=== PATIENT | male | born 1965 ===

== ENCOUNTER 2017-10-10 11:22 | Emergency (ER) | payer MEDICARE, OTHER ==
[~2017-10-10] VITALS: Ht 180.3 cm; Wt 90.7 kg
[~2017-10-10 11:22] MED LIST: ASP81TEC PO; GLIP10TA13; HUM100VI15 SQ; METF1000; OLME1TAB25; PIOG30TA25; [UNRECOGNIZED DRUG - REMARK]; [UNRECOGNIZED DRUG - REMARK]
[2017-10-10] MEDS ORDERED: DEXTROSE 50% 50 ML (IMS) SYR ONE (11:48)
--- OUTSIDE RECORDS SUMMARY | 2017-10-10 11:54 | XMS REPORT ---
Author Author KULDIP TRUJILLO Organization [facility] Address [address] [place] [address] Care Team Providers Care Program Manager Slp Name Role Phone RONNIEANNIKULDIP Unavailable PROBLEMS Type Condition ICD9-CM Code TZD65-AY Code Onset Dates Condition Status SNOMED Code Problem Hypertension I10 Active 27377821 Problem Type 2 diabetes mellitus with hyperglycemia E11.65 Active 350843853 Problem Hyperlipidemia E78.5 Active 50941531 Problem Type 2 diabetes mellitus with other specified complication E11.69 Active 804142417989 Problem Type 2 diabetes mellitus 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 Active 152993325 Problem Other elevated white blood cell (WBC) count D72.828 Active 016570748 Problem History of CVA with residual deficit I69.30 Active 861619632 Problem Ischemic cardiomyopathy I25.5 Active 859182886 Problem Chronic systolic heart failure I50.22 Active 745735577 Problem Type 2 diabetes 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, 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 Active 10821010 Problem Type 2 diabetes mellitus with diabetic polyneuropathy E11.42 Active 960483066 Problem Cerebral atherosclerosis I67.2 Active 37383522 Problem 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 Active 375373449 Problem 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.4 Active 682928623 ALLERGIES No Known Allergies ENCOUNTERS Encounter Location Date Diagnosis [facility] [address] [facility] [id number] [address] Oct, [facility] [address] [facility] [id number], [place] [address] Oct, [facility] [address] [id number] [address] Jul, Type 2 diabetes mellitus with hyperglycemia E11.65 ; Ischemic cardiomyopathy I25.5 ; Hypertension I10 ; Chronic systolic heart failure I50.22 ; Other elevated white blood cell (WBC) count D72.828 ; Hyperlipidemia E78.5 ; 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.4 ; Type 2 diabetes 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, 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 ; Thickened nail L60.2 and Screening for colon cancer Z12.11 [facility] [address] [place] [address]205- 89[address] June, Type 2 diabetes mellitus with hyperglycemia E11.65 ; Other elevated white blood cell (WBC) count D72.828 ; Hypertension I10 and Hyperlipidemia E78.5 [facility] [id number] [place] [address] 11644- 3960 Mar, Type 2 diabetes mellitus with hyperglycemia E11.65 ; Hypertension I10 ; Other elevated white blood cell (WBC) count D72.828 ; Hyperlipidemia E78.5 and Colon cancer screening Z12.11 [facility] [id number] [place] [address] 91059- 4074 Feb, [facility] [id number] [place] [address] 82394- 6575 Jan, Hypertension I10 [facility] [id number] [place] [address] 77438- 8427 Jan, Hypertension I10 [facility] [id number] [place] [address] 58036- 0127 Nov, Type 2 diabetes mellitus with hyperglycemia E11.65 and Encounter for immunization Z23 [facility] [id number] [place] [id number] Sep, Dental examination Z01.20 [facility] [id number] [place] [address] 06866- 0508 Aug, [place] [address] [address] Jul, Dental examination Z01.20 [facility] [id number] [place] [address] 36152- 2489 Jul, [facility] [address], [place] [address] Jul, Type 2 diabetes mellitus with hyperglycemia E11.65 [place] [id number] [place] [address] 15144- 6380 June, [place] [address] [place] [address] 63828- 7849 June, Dental examination Z01.20 [place] [id number] [place] [address] 89373- 1268 June, Type 2 diabetes mellitus with hyperglycemia E11.65 [place] [id number] [place] [address] 63158- 8509 June, Hypertension I10 [place] [id number] [place] [address] 01213- 1198 June, Dental examination Z01.20 [place] [id number] [place] [address] 67214- 3768 June, Type 2 diabetes mellitus with hyperglycemia E11.65 ; Colon cancer screening Z12.11 ; Need for Streptococcus pneumoniae vaccination Z23 ; Hypertension I10 ; Encounter for immunization Z23 and Hyperlipidemia E78.5 [place] [address] [place] [address] 80279- 5811 May, Type 2 diabetes mellitus with hyperglycemia E11.65 [place] [address] [place] [address] 78210- 2945 Apr, Type 2 diabetes mellitus 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 ; Type 2 diabetes mellitus with hyperglycemia E11.65 and Hypertension I10 [place] [address], [place] [address] Feb, Type 2 diabetes mellitus with hyperglycemia E11.65 [place] [address] [place] [address] 44660- 7382 Jan, [place] [address] [place] [address] 56762- 2974 Jan, [place] [address] [address] Dec, Hypertension I10 ; Type 2 diabetes mellitus with hyperglycemia E11.65 ; Hyperlipemia E78.5 and Other elevated white blood cell ( WBC) count D72.828 [place] [id number] [place] [address] 09872- 5845 Dec, Hypertension I10 ; Hyperlipemia E78.5 ; Type 2 diabetes mellitus with hyperglycemia E11.65 ; Type 2 diabetes mellitus 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 ; Other elevated white blood cell (WBC) count D72.828 and History of CVA with residual deficit I69.30 [place] [id number] [place] [address] 23967- 0948 Dec, Cardiomyopathy I42.9 ; Hyperlipidemia E78.5 ; Type 2 diabetes mellitus with other specified complication E11.69 and Hypertension I10 [place] [id number] [place] [address] 07834- 9936 Nov, [place] [id number] [place] [address] 29754- 6521 Nov, Cardiomyopathy I42.9 ; Hyperlipidemia E78.5 ; Type 2 diabetes mellitus with other specified complication E11.69 and Hypertension I10 [place] [address] [place] [address] 23914- 2864 Oct, Hyperlipemia E78.5 [place] [id number] [place] [address] 38434- 9474 Sep, Type 2 diabetes mellitus with hyperglycemia E11.65 [place] [address] [place] [address] 53442- 3095 June, Type 2 diabetes mellitus with hyperglycemia E11.65 [place] [address] [place] [address] 12122- 5693 June, Hypertension I10 and Type 2 diabetes mellitus with hyperglycemia E11.65 [place] [id number] [place] [address] 65231- 3641 June, [facility] [address], [place] [address] May, [facility] [id number] [place] [address] 72945- 9999 May, Hypertension I10 and Type 2 diabetes mellitus with hyperglycemia E11.65 [facility] [id number] [place] [address] 895674- 6035 May, Hypertension I10 ; Type 2 diabetes mellitus with hyperglycemia E11.65 ; Hyperlipidemia E78.5 and Cardiomyopathy I42.9 [place] [id number] [place] [address] 82876- 1244 Mar, [place] [id number] [place] [address] 99470- 8238 Feb, Type 2 diabetes mellitus with hyperglycemia E11.65 [place] [id number] [place] [address] 68325- 5356 Jan, [facility] [address] [place] [address] 01131- 9227 Nov, [facility] [id number] [place] [address] 41484- 8724 Nov, Diabetes mellitus without mention of complication, type II or unspecified type, uncontrolled 250.02 and Hyperlipidemia associated with type 2 diabetes mellitus 250.80 [place] [id number] [place] [address] 65556- 4750 Nov, Hypertension I10 ; Type 2 diabetes mellitus with other specified complication E11.69 and Hyperlipemia E78.5 [facility] [address], [place] [address] 0346 Nov, [place] [id number] [place] [address] 47062- 8273 Nov, [facility] [address], [place] [address] Oct, Diabetes mellitus without mention of complication, type II or unspecified type, uncontrolled 250.02 and Hyperlipidemia associated with type 2 diabetes mellitus 250.80 [facility] [address], [place] [address] Oct, [facility] [address], [place] [address] Aug, Diabetes mellitus without mention of complication, type II or unspecified type, uncontrolled 250.02 ; Other and unspecified hyperlipidemia 272.4 and Hypertension 401.9 [facility] [address], [place] [address]- 7968 Aug, [facility] [address], [place] [address]- 1561 Jul, [facility] [address], [place] [address]- 6791 May, [facility] [address], [place] [address]- 9728 May, [facility] [address], [place] [address]- 1121 Apr, [facility] [address] [address] Apr, [facility] [address], [place] [address]- 4850 Apr, [facility] [id number], [place] [address]- 7314 Apr, [facility] [id number] [address]- 6795 Apr, [facility] [address], [place] [address]- 6461 Apr, [facility] [address], [place] [address]- 2840 Mar, [facility] [id number], [place] [address]- 3046 Mar, [facility] [place] [facility] [address] [id number] [place] [address]- [address] 07 Mar, 2014 [facility] [place] [facility] [address] [id number] [place] [address]- 4178 Mar, [facility] [place] [facility] [address] [id number] [place] [address]- 0748 Mar, [facility] [place] [facility] [address] [id number] [place] [address]- 3550 Feb, [facility] [place] [facility] [address] [id number] [place] [address]- 8482 Feb, [facility] [place] [facility] [address] [id number] [place] [address]- 3715 Feb, [facility] [place] [facility] [address] [id number] [place] [address]- 0860 Feb, [facility] [place] [facility] [address] [id number] [place] [address]- 7424 Feb, [facility] [place] [facility] [address] [id number] [place] [address]- 6799 Feb, [facility] [place] [facility] [address] [id number] [place] [address]- 3512 Feb, [facility] [place] [facility] [address] [id number] [place] [address]- 7611 Feb, [facility] [place] [facility] [address] [id number], [place] [address]- 2823 Jan, [facility] [place] [facility] [address] [id number] [place] [address]- 2588 Jan, [facility] [place] [facility] [address] [id number] [place] [address]- 1366 Jan, [facility] [place] [facility] [address] [id number], [place] [address]- 3171 Jan, [facility] [place] [facility] [address] [id number], [place] [address]- 2546 Jan, [facility] [address] [facility] [id number] [place] [address]- 2546 Jan, [facility] [address] [facility] [id number], [place] [address]- 2546 Jan, [facility] [address] [facility] [id number], [place] [address]- 2546 Jan, [facility] [address] [facility] [id number], [place] [address] 2546 Nov, [facility] [address] [facility] [id number], [place] [address] 2546 Nov, IMMUNIZATIONS No Known Immunizations SOCIAL HISTORY Never Assessed REASON FOR VISIT Diabetes fu --devang denson PLAN OF CARE Activity Details Follow Up 3 Months Reason:DMII VITAL SIGNS Height 68 in 2017-07-18 Weight 199.0 lbs 2017-07-18 Temperature 98.1 degrees Fahrenheit 2017-07-18 Heart Rate 70 bpm 2017-07-18 Respiratory Rate 20 2017-07-18 BMI 30.25 kg/m2 2017-07-18 Blood pressure systolic 128 mmHg 2017-07-18 Blood pressure diastolic 78 mmHg 2017-07-18 MEDICATIONS Medication Instructions Dosage Frequency Start Date End Date Duration Status Metformin HCl 1000 MG Orally 2 times a day 1 tablet with a meal 12h 90 days Active Levemir FlexTouch 100 UNIT/ML Subcutaneous 2 times a day 50 units 12h Active Lisinopril 20 mg Orally Once a day 1 tablet 24h 90 days Active Toprol XL 25 MG Orally Once a day 1 tablet 24h 90 days Active Magnesium Oxide 250 MG Orally Once a day 1 tablet 24h Not-Taking Atorvastatin Calcium 80 MG Orally Once a day 1 tablet 24h 90 days Active Test strips Test Strips Contour 2 times a day test 2 times per day 12h 25 May, 2015 Active NovoLog Flexpen 100 UNIT/ML Subcutaneous 2 times a day before meals 60 units Active Aspirin Adult Low Dose 81 MG Orally Once a day 1 tablet 24h Active RESULTS Name Result Date Reference Range A1C (IN HOUSE) 2017-07-18 A1C IN HOUSE 8.1 4.3 - 5.6 % Previous A1c 8.5 Lot [id number] Exp date 03/2019 PROCEDURES Procedure Date Ordered Result Body Site GLYCATED HEMOGLOBIN TEST July 18, 2017 FOOT EXAM PERFORMED July 18, 2017 [facility] VISIT ESTABLISHED PATIENT July 18, 2017 INSTRUCTIONS MEDICATIONS ADMINISTERED No Known Medications MEDICAL (GENERAL) HISTORY Type Description Date Medical History type II diabetes Medical History hypertension Medical History Disorders of magnesium metabolism Medical History History of CVA with residual deficit Medical History Hyperlipidemia Medical History Chronic systolic heart failure Hospitalization History [facility]- through historic interpreter he had an eye infection - right 10/2013
--- OUTSIDE RECORDS SUMMARY | 2017-10-10 11:55 | XMS REPORT ---
Author Author TIGIST TOLBERT [facility] Address [address] [place] [address] Care Team Providers Care Burlapper Name Role Phone TIGIST TOLBERT Unavailable PROBLEMS Type Condition ICD9-CM Code LJB88-UT Code Onset Dates Condition Status SNOMED Code Problem Hypertension I10 Active 91091535 Problem History of CVA with residual deficit I69.30 Active 777217358 Problem Hyperlipidemia E78.5 Active 13399494 Problem 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 Active 133041599 Problem Type 2 diabetes mellitus with diabetic polyneuropathy E11.42 Active 951981080 Problem Cerebral atherosclerosis I67.2 Active 32230713 Problem Type 2 diabetes mellitus with other specified complication E11.69 Active 657454001245 Problem Type 2 diabetes mellitus 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 Active 654921033 Problem Chronic systolic heart failure I50.22 Active 655062669 Problem Other elevated white blood cell (WBC) count D72.828 Active 340236215 Problem Ischemic cardiomyopathy I25.5 Active 841483188 Problem Type 2 diabetes mellitus with hyperglycemia E11.65 Active 836947025 ALLERGIES No Information SOCIAL HISTORY Never Assessed PLAN OF CARE Activity Details Follow Up 2 Weeks Reason:est. 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
--- OUTSIDE RECORDS SUMMARY | 2017-10-10 11:55 | XMS REPORT ---
Author Author YAMILKA MURRAY [facility] e[employer] Address Unknown Phone Unavailable Care Team Providers Care Hearing Officer Name Role Phone YAMILKA MURRAY CP Unavailable Allergies, Adverse Reactions, Alerts Substance Reaction Event Type N.K.D.A. Info Not Available Non Drug Allergy Problems Problem Type Condition Code Onset Dates Condition Status Problem Diabetes mellitus without mention of complication, type II or unspecified type, uncontrolled 250.02 Active Problem Leukocytosis, unspecified 288.60 Active Problem Unspecified cerebral artery occlusion with cerebral infarction 434.91 Active Problem Hypertension 401.9 Active Problem Ischemic cardiomyopathy 414.8 Active Problem Hyperlipidemia associated with type 2 diabetes mellitus 250.80 Active Problem Hyperlipemia E78.5 Active Problem Unspecified systolic heart failure 428.20 Active Problem Hypertension I10 Active Problem Type 2 diabetes mellitus with other specified complication E11.69 Active Assessment Hyperlipemia E78.5 Active Assessment Type 2 diabetes mellitus with other specified complication E11.69 Active Assessment Hypertension I10 Active Medications Medication Code System Code Instructions Start Date End Date Status Dosage Toprol XL [facility] [address]-26 25 MG Orally Once a day 1 tablet Aspir-81 [facility] [address]-42 81 MG Orally Once a day 1 tablet Metformin HCl [facility] [address]-44 1000 MG Orally Twice a day 1 tablet with meals Atorvastatin Calcium [facility] [address]-59 80 MG Orally Once a day 1 tablet NovoLog [facility] [address]-77 100 UNIT/ML Subcutaneous TID AC 40 units Levemir [facility] [address]-18 100 UNIT/ML Subcutaneous Once a day 80 units Lisinopril [facility] [address]-58 10 MG Orally Once a day 1 tablet Procedures Procedure Coding System Code Date Office Visit, Est Pt., Level 4 CPT-4 96818 Nov 18, 2014 MEASURE BLOOD OXYGEN LEVEL CPT-4 59762 Nov 18, 2014 Vital Signs Date/Time: Nov 18, 2014 Cardiac Monitoring Heart Rate 84 bpm Weight 198 lbs Height 68 in BMI 30.10 Index Oximetry 96 % Blood Pressure Diastolic 82 mmHg Blood Pressure Systolic 122 mmHg Results No Known Results Summary Purpose eClinicalWorks Submission
--- OUTSIDE RECORDS SUMMARY | 2017-10-10 11:55 | XMS REPORT ---
Author Author KULDIP TRUJILLO [facility] Address [address] [place] [address] Care Team Providers Care Administrative Assistant Name Role Phone RONNIEANNIKULDIP Unavailable PROBLEMS Type Condition ICD9-CM Code QNL68-MJ Code Onset Dates Condition Status SNOMED Code Problem Hypertension I10 Active 07423793 Problem Type 2 diabetes mellitus with hyperglycemia E11.65 Active 436070637 Problem Hyperlipidemia E78.5 Active 75519107 Problem Type 2 diabetes mellitus with other specified complication E11.69 Active 068262793246 Problem Type 2 diabetes mellitus 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 Active 962153286 Problem Other elevated white blood cell (WBC) count D72.828 Active 706141629 Problem History of CVA with residual deficit I69.30 Active 723261810 Problem Ischemic cardiomyopathy I25.5 Active 978075108 Problem Chronic systolic heart failure I50.22 Active 632550225 Problem Type 2 diabetes 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, 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 Active 91150246 Problem Type 2 diabetes mellitus with diabetic polyneuropathy E11.42 Active 325801642 Problem Cerebral atherosclerosis I67.2 Active 19092828 Problem 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 Active 478687564 Problem 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.4 Active 071471110 ALLERGIES No Known Allergies ENCOUNTERS Encounter Location Date Diagnosis [facility] [address] [facility] [id number], [place] [address] Oct, [facility] [address] [id number], [place] [address] Sep, [facility] [address] [id number], [place] [address] Jul, Type 2 diabetes mellitus with hyperglycemia E11.65 ; Ischemic cardiomyopathy I25.5 ; Hypertension I10 ; Chronic systolic heart failure I50.22 ; Other elevated white blood cell (WBC) count D72.828 ; Hyperlipidemia E78.5 ; 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.4 ; Type 2 diabetes 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, 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 ; Thickened nail L60.2 and Screening for colon cancer Z12.11 [facility] [id number] [place] [address]243- 6117 June, Type 2 diabetes mellitus with hyperglycemia E11.65 ; Other elevated white blood cell (WBC) count D72.828 ; Hypertension I10 and Hyperlipidemia E78.5 [facility] [id number] [place] [address] 99533- 9787 Mar, Type 2 diabetes mellitus with hyperglycemia E11.65 ; Hypertension I10 ; Other elevated white blood cell (WBC) count D72.828 ; Hyperlipidemia E78.5 and Colon cancer screening Z12.11 [facility] [id number] [place] [address] 56364- 1519 Feb, [facility] [id number] [place] [address] 42721- 3626 Jan, Hypertension I10 [facility] [id number] [place] [address] 68743- 1413 Jan, Hypertension I10 [facility] [id number] [place] [address] 57807- 8496 Nov, Type 2 diabetes mellitus with hyperglycemia E11.65 and Encounter for immunization Z23 [facility] [id number] [place] [id number] Sep, Dental examination Z01.20 [facility] [id number] [place] [address] 19636- 1275 Aug, [place] [address] [address] Jul, Dental examination Z01.20 [facility] [id number] [place] [address] 19144- 3797 Jul, [facility] [address], [place] [address] Jul, Type 2 diabetes mellitus with hyperglycemia E11.65 [place] [id number] [place] [address] 35137- 0775 June, [place] [id number] [place] [address] 36057- 7892 June, Dental examination Z01.20 [place] [id number] [place] [address] 55598- 2385 June, Type 2 diabetes mellitus with hyperglycemia E11.65 [place] [id number] [place] [address] 85829- 7948 June, Hypertension I10 [place] [id number] [place] [address] 17775- 5348 June, Dental examination Z01.20 [place] [id number] [place] [address] 14012- 3809 June, Type 2 diabetes mellitus with hyperglycemia E11.65 ; Colon cancer screening Z12.11 ; Need for Streptococcus pneumoniae vaccination Z23 ; Hypertension I10 ; Encounter for immunization Z23 and Hyperlipidemia E78.5 [place] [id number] [place] [address] 12870- 9554 May, Type 2 diabetes mellitus with hyperglycemia E11.65 [place] [address] [place] [address] 19920- 6233 Apr, Type 2 diabetes mellitus 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 ; Type 2 diabetes mellitus with hyperglycemia E11.65 and Hypertension I10 [place] [address], [place] [address] Feb, Type 2 diabetes mellitus with hyperglycemia E11.65 [place] [address] [place] [address] 65435- 5771 Jan, [place] [address] [place] [address] 36329- 4516 Jan, [place] [address], [place] [address] Dec, Hypertension I10 ; Type 2 diabetes mellitus with hyperglycemia E11.65 ; Hyperlipemia E78.5 and Other elevated white blood cell ( WBC) count D72.828 [place] [id number] [place] [address] 78928- 1770 Dec, Hypertension I10 ; Hyperlipemia E78.5 ; Type 2 diabetes mellitus with hyperglycemia E11.65 ; Type 2 diabetes mellitus 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 ; Other elevated white blood cell (WBC) count D72.828 and History of CVA with residual deficit I69.30 [place] [id number] [place] [address] 93094- 6765 Dec, Cardiomyopathy I42.9 ; Hyperlipidemia E78.5 ; Type 2 diabetes mellitus with other specified complication E11.69 and Hypertension I10 [place] [id number] [place] [address] 57215- 2770 Nov, [place] [id number] [place] [address] 16835- 6939 Nov, Cardiomyopathy I42.9 ; Hyperlipidemia E78.5 ; Type 2 diabetes mellitus with other specified complication E11.69 and Hypertension I10 [place] [address] [place] [address] 11996- 8293 Oct, Hyperlipemia E78.5 [place] [id number] [place] [address] 71209- 0306 Sep, Type 2 diabetes mellitus with hyperglycemia E11.65 [place] [address] [place] [address] 60630- 4593 June, Type 2 diabetes mellitus with hyperglycemia E11.65 [place] [address] [place] [address] 31286- 5100 June, Hypertension I10 and Type 2 diabetes mellitus with hyperglycemia E11.65 [place] [id number] [place] [address] 93044- 6533 June, [facility] [address], [place] [address] May, [facility] [id number] [place] [address] 35932- 1168 May, Hypertension I10 and Type 2 diabetes mellitus with hyperglycemia E11.65 [facility] [id number] [place] [address] 513833- 2244 May, Hypertension I10 ; Type 2 diabetes mellitus with hyperglycemia E11.65 ; Hyperlipidemia E78.5 and Cardiomyopathy I42.9 [place] [id number] [place] [address] 50876- 7613 Mar, [place] [id number] [place] [address] 39221- 2404 Feb, Type 2 diabetes mellitus with hyperglycemia E11.65 [place] [id number] [place] [address] 88421- 6882 Jan, [facility] [address] [place] [address] 85784- 5260 Nov, [facility] [id number] [place] [address] 12967- 5067 Nov, Diabetes mellitus without mention of complication, type II or unspecified type, uncontrolled 250.02 and Hyperlipidemia associated with type 2 diabetes mellitus 250.80 [place] [id number] [place] [address] 97411- 9274 Nov, Hypertension I10 ; Type 2 diabetes mellitus with other specified complication E11.69 and Hyperlipemia E78.5 [facility] [address], [place] [address]- 8651 Nov, [place] [id number] [place] [address] 16868- 8135 Nov, [facility] [address], [place] [address]- 9483 Oct, Diabetes mellitus without mention of complication, type II or unspecified type, uncontrolled 250.02 and Hyperlipidemia associated with type 2 diabetes mellitus 250.80 [facility] [address], [place] [address]- 4852 Oct, [facility] [address], [place] [address]- 1130 Aug, Diabetes mellitus without mention of complication, type II or unspecified type, uncontrolled 250.02 ; Other and unspecified hyperlipidemia 272.4 and Hypertension 401.9 [facility] [address], [place] [address]- 1877 Aug, [facility] [address], [place] [address]- 5443 Jul, [facility] [address], [place] [address]- 6184 May, [facility] [address], [place] [address]- 6890 May, [facility] [address], [place] [address]- 7271 Apr, [facility] [address] 5695 Apr, [facility] [address], [place] [address]- 6584 Apr, [facility] [id number], [place] [address]- 9639 Apr, [facility] [id number], [place] [address]- 5281 Apr, [facility] [address], [place] [address]- 7974 Apr, [facility] [address], [place] [address] Mar, [facility] [id number], [place] [address]- 9796 Mar, [facility] [place] [facility] [address] [id number] [place] [address]- 3177 07 Mar, 2014 [facility] [place] [facility] [address] [id number] [place] [address]- 3034 Mar, [facility] [place] [facility] [address] [id number] [place] [address]- 1364 Mar, [facility] [place] [facility] [address] [id number] [place] [address]- 3446 Feb, [facility] [place] [facility] [address] [id number] [place] [address]- 3674 Feb, [facility] [place] [facility] [address] [id number] [place] [address]- 8344 Feb, [facility] [place] [facility] [address] [id number] [place] [address]- 9543 Feb, [facility] [place] [facility] [address] [id number] [place] [address]- 4611 Feb, [facility] [place] [facility] [address] [id number] [place] [address]- 7653 Feb, [facility] [place] [facility] [address] [id number] [place] [address]- 8959 Feb, [facility] [place] [facility] [address] [id number] [place] [address]- 8906 Feb, [facility] [place] [facility] [address] [id number], [place] [address]- 5232 Jan, [facility] [place] [facility] [address] [id number] [place] [address]- 3856 Jan, [facility] [place] [facility] [address] [id number] [place] [address]- 2625 Jan, [facility] [place] [facility] [address] [id number], [place] [address]- 5321 Jan, [facility] [place] [facility] [address] [id number], [place] [address] 2546 Jan, [facility] [address] [facility] [id number], [place] [address]- 4656 Jan, [facility] [address] [id number], [place] [address] 2546 Jan, [facility] [address] [id number], [place] [address] 2546 Jan, [facility] [address] [facility] [id number], [place] [address]- 8566 Nov, [facility] [address] [id number], [place] [address]- 3516 Nov, IMMUNIZATIONS No Known Immunizations SOCIAL HISTORY Never Assessed REASON FOR VISIT Diabetes f/u -- devang denson PLAN OF CARE Activity Details Follow Up 3 Months Reason:DMII VITAL SIGNS Height 68 in 2017-03-27 Weight 206.0 lbs 2017-03-27 Temperature 98.0 degrees Fahrenheit 2017-03-27 Heart Rate 70 bpm 2017-03-27 Respiratory Rate 22 2017-03-27 BMI 31.32 kg/m2 2017-03-27 Blood pressure systolic 140 mmHg 2017-03-27 Blood pressure diastolic 80 mmHg 2017-03-27 MEDICATIONS Medication Instructions Dosage Frequency Start Date End Date Duration Status Metformin HCl 1000 MG TAKE ONE TABLET BY MOUTH TWICE DAILY WITH MEALS Active Levemir FlexTouch 100 UNIT/ML INJECT 80 UNITS SUBCUTANEOUSLY ONCE DAILY AT BEDTIME Active Toprol XL 25 MG TAKE ONE TABLET BY MOUTH ONCE DAILY Active Lisinopril 20 MG TAKE ONE TABLET BY MOUTH ONCE DAILY Active NovoLog Flexpen 100 UNIT/ML INJECT 60 UNITS SUBCUTANEOUSLY TWICE DAILY WITH MEALS Active Magnesium Oxide 250 MG Orally Once a day 1 tablet 24h Not-Taking Aspirin Adult Low Dose 81 MG Orally Once a day 1 tablet 24h Active Test strips Test Strips Contour 2 times a day test 2 times per day 12h 25 May, 2015 Active Atorvastatin Calcium 80 MG Orally Once a day 0.5 tablet 24h Active RESULTS Name Result Date Reference Range A1C (IN HOUSE) 2017-03-27 A1C IN HOUSE 8.5 4.3 - 5.6 % Previous A1c 6.2 Lot [id number] Exp date 11/2018 PROCEDURES Procedure Date Ordered Result Body Site GLYCATED HEMOGLOBIN TEST Mar 27, 2017 [facility] VISIT ESTABLISHED PATIENT Mar 27, 2017 INSTRUCTIONS MEDICATIONS ADMINISTERED No Known Medications MEDICAL (GENERAL) HISTORY Type Description Date Medical History type II diabetes Medical History hypertension Medical History Disorders of magnesium metabolism Medical History History of CVA with residual deficit Medical History Hyperlipidemia Medical History Chronic systolic heart failure Hospitalization History [facility]- 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
--- OUTSIDE RECORDS SUMMARY | 2017-10-10 11:55 | XMS REPORT ---
Author Author KULDIP TRUJILLO [employer] Address Unknown Phone Unavailable Care Team Providers Care Vmware Consultant Name Role Phone KULDIP TRUJILLO CP Unavailable Allergies No Known Allergies Problems Problem Type Condition Code Onset Dates Condition Status Problem Diabetes mellitus without mention of complication, type II or unspecified type, uncontrolled 250.02 Active Problem Leukocytosis, unspecified 288.60 Active Problem Unspecified cerebral artery occlusion with cerebral infarction 434.91 Active Assessment Hyperlipidemia associated with type 2 diabetes mellitus 250.80 Active Assessment Diabetes mellitus without mention of complication, type II or unspecified type, uncontrolled 250.02 Active Problem Hypertension 401.9 Active Problem Ischemic cardiomyopathy 414.8 Active Problem Hyperlipidemia associated with type 2 diabetes mellitus 250.80 Active Problem Hyperlipemia E78.5 Active Problem Unspecified systolic heart failure 428.20 Active Problem Hypertension I10 Active Problem Type 2 diabetes mellitus with other specified complication E11.69 Active Medications No Known Medications Procedures Procedure Coding System Code Date COMPREHEN METABOLIC PANEL CPT-4 38502 Nov 18, 2014 LIPID PANEL CPT-4 99313 Nov 18, 2014 COMPLETE CBC W/AUTO DIFF WBC CPT-4 80940 Nov 18, 2014 VENIPUNCT, ROUTINE* CPT-4 81815 Nov 18, 2014 GLYCATED HEMOGLOBIN TEST CPT-4 78202 Nov 18, 2014 Results Name Result Date Reference Range Unit Abnormality Flag ROUTINE VENIPUNCTURE Summary Purpose [employer]Clinical[employer] Submission
--- OUTSIDE RECORDS SUMMARY | 2017-10-10 11:55 | XMS REPORT ---
Author Author YAMILKA MURRAY [facility] eClinical[employer] Address Unknown Phone Unavailable Care Team Providers Care Head Golf Professional Name Role Phone YAMILKA MURRAY CP Unavailable Allergies, Adverse Reactions, Alerts Substance Reaction Event Type N.K.D.A. Info Not Available Non Drug Allergy Problems Problem Type Condition Code Onset Dates Condition Status Assessment Type 2 diabetes mellitus with hyperglycemia E11.65 Active Problem Hyperlipemia E78.5 Active Assessment Hypertension I10 Active Assessment Cardiomyopathy I42.9 Active Assessment Hyperlipidemia E78.5 Active Problem Other elevated white blood cell (WBC) count D72.828 Active Problem History of CVA with residual deficit I69.30 Active Problem Chronic systolic heart failure I50.22 Active Problem Hyperlipidemia E78.5 Active Problem Hypertension I10 Active Problem Type 2 diabetes mellitus with hyperglycemia E11.65 Active Problem Ischemic cardiomyopathy I25.5 Active Medications Medication Code System Code Instructions Start Date End Date Status Dosage Atorvastatin Calcium [facility] [address]-43 80 MG Orally Once a day 1 tablet Aspir-81 [facility] [address]-73 81 MG Orally Once a day 1 tablet Levemir [facility] [address]-34 100 UNIT/ML Subcutaneous Once a day 80 units Lisinopril [facility] [address]-39 10 MG Orally Once a day 1 tablet Toprol XL [facility] [address]-91 25 MG Orally Once a day 1 tablet NovoLog Flexpen [facility] 80456635986 100 UNIT/ML INJECT 50 UNITS SUBCUTANEOUSLY THREE TIMES DAILY BEFORE MEALS NovoLog [facility] [address]-77 100 UNIT/ML Subcutaneous TID AC 50 units Metformin HCl [facility] 37481410610 1000 MG TAKE ONE TABLET BY MOUTH TWICE DAILY WITH MORNING AND EVENING MEALS Procedures Procedure Coding System Code Date Office Visit, Est Pt., Level 4 CPT-4 38015 May 19, 2015 MEASURE BLOOD OXYGEN LEVEL CPT-4 62296 May 19, 2015 Vital Signs Date/Time: May 19, 2015 Cardiac Monitoring Heart Rate 96 bpm Weight 199 lbs Height 68 in BMI 30.25 Index Oximetry 94 % Blood Pressure Diastolic 80 mmHg Blood Pressure Systolic 122 mmHg Results No Known Results Summary Purpose eClinicalWorks Submission
--- OUTSIDE RECORDS SUMMARY | 2017-10-10 11:55 | XMS REPORT ---
Author Author KULDIP TRUJILLO [facility] Address [address] [place] [address] Care Team Providers Care Microsoft Solutions Architect Name Role Phone RONNIEANNIKULDIP Unavailable PROBLEMS Type Condition ICD9-CM Code OZA73-TQ Code Onset Dates Condition Status SNOMED Code Problem Hypertension I10 Active 34656224 Problem Type 2 diabetes mellitus with hyperglycemia E11.65 Active 651080117 Problem Hyperlipidemia E78.5 Active 38862668 Problem Type 2 diabetes mellitus with other specified complication E11.69 Active 547682305248 Problem Type 2 diabetes mellitus 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 Active 094134675 Problem Other elevated white blood cell (WBC) count D72.828 Active 787689799 Problem History of CVA with residual deficit I69.30 Active 887644334 Problem Ischemic cardiomyopathy I25.5 Active 866967859 Problem Chronic systolic heart failure I50.22 Active 362353938 Problem Type 2 diabetes 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, 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 Active 51177830 Problem Type 2 diabetes mellitus with diabetic polyneuropathy E11.42 Active 804199745 Problem Cerebral atherosclerosis I67.2 Active 24459704 Problem 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 Active 067630571 Problem watermelon harvesting supervisor current use of insulin Z79.4 Active 575895164 ALLERGIES No Information ENCOUNTERS Encounter Location Date Diagnosis [facility] [address] [facility] [id number] [address] Oct, [facility] [address] [facility] [id number], [place] [address] Oct, [facility] [address] [id number] [address] Jul, Type 2 diabetes mellitus with hyperglycemia E11.65 ; Ischemic cardiomyopathy I25.5 ; Hypertension I10 ; Chronic systolic heart failure I50.22 ; Other elevated white blood cell (WBC) count D72.828 ; Hyperlipidemia E78.5 ; watermelon harvesting supervisor current use of insulin Z79.4 ; Type 2 diabetes 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, 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 ; Thickened nail L60.2 and Screening for colon cancer Z12.11 [facility] [id number] [place] [address] 50356- 9081 June, Type 2 diabetes mellitus with hyperglycemia E11.65 ; Other elevated white blood cell (WBC) count D72.828 ; Hypertension I10 and Hyperlipidemia E78.5 [facility] [id number] [place] [address] 55425- 7035 Mar, Type 2 diabetes mellitus with hyperglycemia E11.65 ; Hypertension I10 ; Other elevated white blood cell (WBC) count D72.828 ; Hyperlipidemia E78.5 and Colon cancer screening Z12.11 [facility] [id number] [place] [address] 97073- 0788 Feb, [facility] [id number] [place] [address] 11151- 4739 Jan, Hypertension I10 [facility] [id number] [place] [address] 95692- 4193 Jan, Hypertension I10 [facility] [id number] [place] [address] 92471- 3950 Nov, Type 2 diabetes mellitus with hyperglycemia E11.65 and Encounter for immunization Z23 [facility] [id number] [place] [address] [id number] Sep, Dental examination Z01.20 [facility] [id number] [place] [address] 37863- 8939 Aug, [facility] [id number] [place] [address] 31254- 7689 Jul, Dental examination Z01.20 [facility] [id number] [place] [address] 54326- 2354 Jul, [facility] [address] [address] Jul, Type 2 diabetes mellitus with hyperglycemia E11.65 [place] [id number] [place] [address] 04514- 2136 June, [place] [id number] [place] [address] 71482- 1379 June, Dental examination Z01.20 [place] [facility] [id number] [place] [address] 25338- 9597 June, Type 2 diabetes mellitus with hyperglycemia E11.65 [place] [id number] [place] [address] 90099- 4873 June, Hypertension I10 [address] [id number] [place] [address] 76507- 9323 June, Dental examination Z01.20 [place] [id number] [place] [address] 30772- 7440 June, Type 2 diabetes mellitus with hyperglycemia E11.65 ; Colon cancer screening Z12.11 ; Need for Streptococcus pneumoniae vaccination Z23 ; Hypertension I10 ; Encounter for immunization Z23 and Hyperlipidemia E78.5 [place] [id number] [place] [address] 02534- 7307 May, Type 2 diabetes mellitus with hyperglycemia E11.65 [place] [id number] [place] [address] 18698- 6620 Apr, Type 2 diabetes mellitus 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 ; Type 2 diabetes mellitus with hyperglycemia E11.65 and Hypertension I10 [place] [id number] [place] [address] 17864- 1754 Feb, Type 2 diabetes mellitus with hyperglycemia E11.65 [place] [id number] [place] [address] 89940- 6225 Jan, [place] [id number] [place] [address] 61210- 7911 Jan, [place] [address] [address] Dec, Hypertension I10 ; Type 2 diabetes mellitus with hyperglycemia E11.65 ; Hyperlipemia E78.5 and Other elevated white blood cell ( WBC) count D72.828 [place] [id number] [place] [address] 20276- 1567 Dec, Hypertension I10 ; Hyperlipemia E78.5 ; Type 2 diabetes mellitus with hyperglycemia E11.65 ; Type 2 diabetes mellitus 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 ; Other elevated white blood cell (WBC) count D72.828 and History of CVA with residual deficit I69.30 [place] [id number] [place] [address] 99166- 0750 Dec, Cardiomyopathy I42.9 ; Hyperlipidemia E78.5 ; Type 2 diabetes mellitus with other specified complication E11.69 and Hypertension I10 [place] [id number] [place] [address] 49765- 9597 Nov, [place] [id number] [place] [address] 79328- 4355 Nov, Cardiomyopathy I42.9 ; Hyperlipidemia E78.5 ; Type 2 diabetes mellitus with other specified complication E11.69 and Hypertension I10 [place] [id number] [place] [address] 33167- 2082 Oct, Hyperlipemia E78.5 [place] [id number] [place] [address] 99878- 3413 Sep, Type 2 diabetes mellitus with hyperglycemia E11.65 [place] [id number] [place] [address] 84667- 3311 June, Type 2 diabetes mellitus with hyperglycemia E11.65 [place] [id number] [place] [address] 38748- 1277 June, Hypertension I10 and Type 2 diabetes mellitus with hyperglycemia E11.65 [place] [id number] [place] [address] 49426- 7059 June, [facility] [address] [address] May, [facility] [id number] [place] [address] 11370- 6800 May, Hypertension I10 and Type 2 diabetes mellitus with hyperglycemia E11.65 [facility] [id number] [place] [address] 25308- 3073 May, Hypertension I10 ; Type 2 diabetes mellitus with hyperglycemia E11.65 ; Hyperlipidemia E78.5 and Cardiomyopathy I42.9 [place] [id number] [place] [address] 59250- 7669 Mar, [place] [id number] [place] [address] 61046- 7106 Feb, Type 2 diabetes mellitus with hyperglycemia E11.65 [place] [id number] [place] [address] 20668- 7153 Jan, [facility] [id number] [place] [address] 60524- 9249 Nov, [facility] [id number] [place] [address] 69680- 2758 Nov, Diabetes mellitus without mention of complication, type II or unspecified type, uncontrolled 250.02 and Hyperlipidemia associated with type 2 diabetes mellitus 250.80 [place] [address] [place] [address] 92744- 4546 Nov, Hypertension I10 ; Type 2 diabetes mellitus with other specified complication E11.69 and Hyperlipemia E78.5 [facility] [address] [address] 3987 Nov, [facility] [id number] [place] [address] 15227- 4153 Nov, [facility] [address], [place] [address] 114[address] Oct, Diabetes mellitus without mention of complication, type II or unspecified type, uncontrolled 250.02 and Hyperlipidemia associated with type 2 diabetes mellitus 250.80 [facility] [address], [place] [address] 6832 Oct, [facility] [address] Aug, Diabetes mellitus without mention of complication, type II or unspecified type, uncontrolled 250.02 ; Other and unspecified hyperlipidemia 272.4 and Hypertension 401.9 [facility] [address], [place] [address] 9620 Aug, [facility] [address], [place] [address] 0933 Jul, [facility] [id number] [address] 7534 May, [facility] [address], [place] [address]- 9901 May, [facility] [address], [place] [address]- 9970 Apr, [facility] [address], [place] [address]- 1377 Apr, [facility] [address], [place] [address]- 5826 Apr, [facility] [address], [place] [address]- 4337 Apr, [facility] [address], [place] [address]- 8590 Apr, [facility] [id number], [place] [address]- 2462 Apr, [facility] [address] 2046 Mar, [facility] [id number], [place] [address]- 8587 Mar, [facility] [place] [facility] [address] [id number] [place] [address]- 0897 Mar, 2014 [facility] [place] [facility] [address] [id number] [place] [address]- 8030 Mar, [facility] [place] [facility] [address] [id number] [place] [address]- 6869 Mar, [facility] [place] [facility] [address] [id number] [place] [address]- 1493 Feb, [facility] [place] [facility] [address] [id number] [place] [address]- 4931 Feb, [facility] [place] [facility] [address] [id number] [place] [address]- 2419 Feb, [facility] [place] [facility] [address] [id number] [place] [address]- 3144 Feb, [facility] [place] [facility] [address] [id number] [place] [address]- 3766 Feb, [facility] [place] [facility] [address] [id number] [place] [address]- 1962 Feb, [facility] [place] [facility] [address] [id number] [place] [address]- 3414 Feb, [facility] [place] [facility] [address] [id number] [place] [address]- 0902 Feb, [facility] [place] [facility] [address] [id number] [place] [address]- 9368 Jan, [facility] [place] [facility] [address] [id number] [place] [address]- 2271 Jan, [facility] [place] [facility] [address] [id number] [place] [address]- 0127 Jan, [facility] [place] [facility] [address] [id number] [place] [address] Jan, [facility] [place] [facility] [address] [id number], [place] [address]- 2546 Jan, [facility] [address] [facility] [id number], [place] [address]- 2546 Jan, [facility] [address] [facility] [id number], [place] [address]- 2546 Jan, [facility] [address] [facility] [id number], [place] [address]- 2546 Jan, [facility] [address] [facility] [id number], [place] [address]- 2546 Nov, [facility] [address] [facility] [id number], [place] [address]- 2546 Nov, IMMUNIZATIONS No Known Immunizations SOCIAL HISTORY Never Assessed REASON FOR VISIT Lab (walk-in) PLAN OF CARE VITAL SIGNS MEDICATIONS Unknown Medications RESULTS No Results PROCEDURES Procedure Date Ordered Result Body Site LAB NOT BILLED BY [facility] June 25, 2017 PETER RAMIREZ* June 25, 2017 INSTRUCTIONS MEDICATIONS ADMINISTERED No Known Medications MEDICAL (GENERAL) HISTORY Type Description Date Medical History type II diabetes Medical History hypertension Medical History Disorders of magnesium metabolism Medical History History of CVA with residual deficit Medical History Hyperlipidemia Medical History Chronic systolic heart failure Hospitalization History [facility]- 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
--- OUTSIDE RECORDS SUMMARY | 2017-10-10 11:55 | XMS REPORT ---
Author Author KULDIP TRUJILLO [facility] Address [address] [place] [address] Care Team Providers Care Insurance Claims Supervisor Name Role Phone KULDIP TRUJILLO Unavailable PROBLEMS Type Condition ICD9-CM Code SFC09-OY Code Onset Dates Condition Status SNOMED Code Problem Hypertension I10 Active 55409734 Problem Ischemic cardiomyopathy I25.5 Active 946317926 Problem Hyperlipidemia E78.5 Active 91320744 Assessment Hyperlipemia E78.5 26 Oct, 2015 Active 06915098 Problem Type 2 diabetes mellitus with diabetic polyneuropathy E11.42 Active 614222461 Problem Type 2 diabetes mellitus with other specified complication E11.69 Active 816859334477 Problem Type 2 diabetes mellitus 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 Active 699408584 Problem History of CVA with residual deficit I69.30 Active 859009568 Problem Type 2 diabetes mellitus with hyperglycemia E11.65 Active 976084938 Problem Chronic systolic heart failure I50.22 Active 467359836 Problem Other elevated white blood cell (WBC) count D72.828 Active 692581647 ALLERGIES Unknown Allergies SOCIAL HISTORY No smoking Hx information available PLAN OF CARE VITAL SIGNS MEDICATIONS Unknown Medications RESULTS No Results PROCEDURES No Known procedures IMMUNIZATIONS No Known Immunizations
--- OUTSIDE RECORDS SUMMARY | 2017-10-10 11:55 | XMS REPORT ---
Author Author KULDIP TRUJILLO [facility] eClinical[employer] Address Unknown Phone Unavailable Care Team Providers Care Cinder Man Name Role Phone KULDIP TRUJILLO Unavailable Allergies No Known Allergies Problems Problem [...] with other specified complication E11.69 Active Medications Medication Code System Code Instructions Start Date End Date Status Dosage Toprol XL [facility] [address]-53 25 MG Orally Once a day 1 tablet Results No Known Results Summary Purpose eClinicalWorks Submission
--- OUTSIDE RECORDS SUMMARY | 2017-10-10 11:56 | XMS REPORT ---
Author Author KULDIP TRUJILLO [facility] e[employer] Address Unknown Phone Unavailable Care Team Providers Care Telephoner Name Role Phone KULDIP TRUJILLO CP Unavailable Allergies, Adverse Reactions, Alerts Substance Reaction Event Type N.K.D.A. Info Not Available Non Drug Allergy Problems Problem Type Condition Code Onset Dates Condition Status Assessment Diabetes mellitus without mention of complication, type II or unspecified type, uncontrolled 250.02 Active Assessment Hyperlipidemia associated with type 2 diabetes mellitus 250.80 Active Problem Hypertension 401.9 Active Problem Ischemic cardiomyopathy 414.8 Active Problem Hyperlipidemia associated with type 2 diabetes mellitus 250.80 Active Problem Unspecified cerebral artery occlusion with cerebral infarction 434.91 Active Problem Diabetes mellitus without mention of complication, type II or unspecified type, uncontrolled 250.02 Active Problem Unspecified systolic heart failure 428.20 Active Problem Leukocytosis, unspecified 288.60 Active Medications Medication Code System Code Instructions Start Date End Date Status Dosage Levemir [facility] [address]-15 100 UNIT/ML Subcutaneous Once a day [address] [facility] [address]-85 100 UNIT/ML Subcutaneous TID AC 40 units Aspir-[address] [facility] [address]-99 81 MG Orally Once a day 1 tablet Atorvastatin Calcium [facility] [address]-84 80 MG Orally Once a day 1 tablet Metformin HCl [facility] [address]-21 1000 MG Orally Twice a day 1 tablet with meals Lisinopril [facility] [address]-95 10 MG Orally Once a day [address] XL [facility] [address]-13 25 MG Orally Once a day 1 tablet Procedures Procedure Coding System Code Date Office Visit, Est Pt., Level 3 CPT-4 09519 Nov 03, 2014 Vital Signs Date/Time: Nov 03, 2014 Temperature 98.0 F Weight 198.0 lbs Height 68 in BMI 30.10 Index Blood Pressure Diastolic 84 mmHg Blood Pressure Systolic 130 mmHg Cardiac Monitoring Heart Rate 80 bpm Results No Known Results Summary Purpose eClinicalWorks Submission
--- OUTSIDE RECORDS SUMMARY | 2017-10-10 11:56 | XMS REPORT ---
Author Author RONNIE KULDIP [facility] Address [address] [place] [address] Care Team Providers [facility] Name Role Phone RONNIEANNI CLEMENTSHANY Unavailable PROBLEMS Type Condition ICD9-CM Code BZT83-RT Code Onset Dates Condition Status SNOMED Code Problem Hypertension I10 Active 85432392 Problem Type 2 diabetes mellitus with hyperglycemia E11.65 Active 161948251 Problem Hyperlipidemia E78.5 Active 48182881 Problem Type 2 diabetes mellitus with other specified complication E11.69 Active 402137192326 Problem Type 2 diabetes mellitus 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 Active 621418776 Problem Other elevated white blood cell (WBC) count D72.828 Active 545856398 Problem History of CVA with residual deficit I69.30 Active 766381407 Problem Ischemic cardiomyopathy I25.5 Active 791803715 Problem Chronic systolic heart failure I50.22 Active 361412023 Problem Type 2 diabetes 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, 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 Active 63834097 Problem Type 2 diabetes mellitus with diabetic polyneuropathy E11.42 Active 912031880 Problem Cerebral atherosclerosis I67.2 Active 24912221 Problem 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 Active 280739601 Problem 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 Active [id number] ALLERGIES No Known Allergies ENCOUNTERS Encounter Location Date Diagnosis [place] [id number] [address] Jul, Medicare annual wellness visit, initial Z00.00 [place] [id number] [place] [address]343- 8721 Jul, [place] [id number] [address] Mar, Type 2 diabetes mellitus with hyperglycemia E11.65 ; Hypertension I10 ; Other elevated white blood cell (WBC) count D72.828 ; Hyperlipidemia E78.5 and Colon cancer screening Z12.11 [facility] [address] [address] Feb, [facility] [address] [place] [address] 13330787- 8379 Jan, Hypertension I10 [facility] [id number] [place] [address] 12805- 6764 Jan, Hypertension I10 [facility] [address] [place] [address] 83925- 0606 Nov, Type 2 diabetes mellitus with hyperglycemia E11.65 and Encounter for immunization Z23 [facility] [address] [id number] Sep, Dental examination Z01.20 [facility] [id number] [place] [address] 29586- 1303 Aug, [facility] [id number] [place] [address] 40558- 6792 Jul, Dental examination Z01.20 [facility] [id number] [place] [address] 10628- 5581 Jul, [facility] [address] [place] [address] 79547- 2866 Jul, Type 2 diabetes mellitus with hyperglycemia E11.65 [facility] [address] [address] June, [facility] [address] [place] [address] 45031- 9165 June, Dental examination Z01.20 [facility] [address] [place] [address] 81501- 1793 June, Type 2 diabetes mellitus with hyperglycemia E11.65 [facility] [address] [address] 29[address] June, Hypertension I10 [place] [facility] [id number] [place] [address] 20598- 8568 02 Jun, 2016 Dental examination Z01.[address] [address] June, Type 2 diabetes mellitus with hyperglycemia E11.65 ; Colon cancer screening Z12.11 ; Need for Streptococcus pneumoniae vaccination Z23 ; Hypertension I10 ; Encounter for immunization Z23 and Hyperlipidemia E78.5 [place] [id number] [place] [address] 91218- 5771 May, Type 2 diabetes mellitus with hyperglycemia E11.65 [place] [id number] [place] [address] 79238- 8847 Apr, Type 2 diabetes mellitus 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 ; Type 2 diabetes mellitus with hyperglycemia E11.65 and Hypertension I10 [place] [id number] [place] [address] 77937- 4279 Feb, Type 2 diabetes mellitus with hyperglycemia E11.65 [place] [id number] [place] [address] 19017- 7029 Jan, [address] [address]- [address] Jan, [place] [id number] [place] [address] 02691- 6662 Dec, Hypertension I10 ; Type 2 diabetes mellitus with hyperglycemia E11.65 ; Hyperlipemia E78.5 and Other elevated white blood cell ( WBC) count D72.828 [place] [id number] [place] [address] 00752- 5293 Dec, Hypertension I10 ; Hyperlipemia E78.5 ; Type 2 diabetes mellitus with hyperglycemia E11.65 ; Type 2 diabetes mellitus 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 ; Other elevated white blood cell (WBC) count D72.828 and History of CVA with residual deficit I69.30 [place] [id number] [place] [address] 95865- 1738 Dec, Cardiomyopathy I42.9 ; Hyperlipidemia E78.5 ; Type 2 diabetes mellitus with other specified complication E11.69 and Hypertension I10 [facility] [id number] [place] [address] 44040- 4461 Nov, [facility] [id number] [place] [address] 43287- 9062 Nov, Cardiomyopathy I42.9 ; Hyperlipidemia E78.5 ; Type 2 diabetes mellitus with other specified complication E11.69 and Hypertension I10 [facility] [id number] [place] [address] 84294- 3336 Oct, Hyperlipemia E78.5 [facility] [id number] [place] [address] 09417- 3467 Sep, Type 2 diabetes mellitus with hyperglycemia E11.65 [place] [id number] [place] [address] 64824- 2219 June, Type 2 diabetes mellitus with hyperglycemia E11.65 [facility] [id number] [place] [address] 95624- 0066 June, Hypertension I10 and Type 2 diabetes mellitus with hyperglycemia E11.65 [facility] [id number] [place] [address] 83054- 2229 June, [facility] [id number] [place] [address] 83763- 5823 May, [facility] [address] [place] [address] 85550- 7699 May, Hypertension I10 and Type 2 diabetes mellitus with hyperglycemia E11.65 [facility] [address] [place] [address] 78156- 0477 May, Hypertension I10 ; Type 2 diabetes mellitus with hyperglycemia E11.65 ; Hyperlipidemia E78.5 and Cardiomyopathy I42.9 [facility] [address] [address] 7984 Mar, [facility] [id number] [address] 8204 Feb, Type 2 diabetes mellitus with hyperglycemia E11.65 [facility] [id number] [place] [address] 79801- 7889 Jan, [facility] [id number] [place] [address] 77535- 6183 Nov, [facility] [id number] [place] [address] 63015- 2535 Nov, Diabetes mellitus without mention of complication, type II or unspecified type, uncontrolled 250.02 and Hyperlipidemia associated with type 2 diabetes mellitus 250.80 [facility] [id number] [place] [address] 85497- 6623 Nov, Hypertension I10 ; Type 2 diabetes mellitus with other specified complication E11.69 and Hyperlipemia E78.5 [place] [id number] [place] [address] 25791- 0851 Nov, [facility] [id number] [place] [address] 78036- 9554 Nov, [facility] [id number] [place] [address] 55878- 7245 Oct, Diabetes mellitus without mention of complication, type II or unspecified type, uncontrolled 250.02 and Hyperlipidemia associated with type 2 diabetes mellitus 250.80 [facility] [address] [place] [address] 56672- 4214 Oct, [facility] [id number] [place] [address] 69273- 4683 Aug, Diabetes mellitus without mention of complication, type II or unspecified type, uncontrolled 250.02 ; Other and unspecified hyperlipidemia 272.4 and Hypertension 401.9 [facility] [address] [place] [address] 41636- 3348 Aug, [facility] [address] [address]- 7[address] Jul, [facility] [address] [place] [address]- 9173 14 May, 2014 [facility] [place] [facility] [address] [id number] [place] [address]- 8607 May, [facility] [place] [facility] [address] [id number] [place] [address]- 3164 Apr, [facility] [place] [facility] [address] [id number] [place] [address]- 0305 Apr, [facility] [place] [facility] [address] [id number] [place] [address]- 9781 Apr, [facility] [place] [facility] [address] [id number] [place] [address]- 5237 Apr, [facility] [place] [facility] [address] [facility] [id number] [place] [address]- 4121 Apr, [facility] [place] [facility] [address] [id number] [place] [address]- 1931 Apr, [facility] [place] [facility] [address] [id number] [place] [address]- 9300 Mar, 2014 [facility] [place] [facility] [address] [id number] [place] [address]- 4284 Mar, [facility] [place] [facility] [address] [facility] [id number] [place] [address]- 1360 Mar, 2014 [facility] [place] [facility] [address] [id number] [place] [address]- 6831 Mar, 2014 [facility] [place] [facility] [address] [id number] [place] [address]- 0312 Mar, 2014 [facility] [place] [facility] [address] [id number] [place] [address]- 0190 Feb, [facility] [place] [facility] [address] [id number] [place] [address]- 0187 Feb, [facility] [place] [facility] [address] [id number] [place] [address]- 9003 Feb, [facility] [address] [facility] [id number] [address]- 7764 Feb, [facility] [address] [facility] [id number] [address]- 9986 Feb, [facility] [id number] [address]- 6866 Feb, [facility] [address] [address]- 8436 Feb, [facility] [id number] [address]- 5452 Feb, [facility] [address] [address]- 1920 Jan, [facility] [address] [address]- 8231 Jan, [facility] [address] [address]- 5086 Jan, [facility] [address] 0136 Jan, [facility] [address] 9272 Jan, [facility] [id number] [address]- 6410 Jan, [facility] [id number] [address]- 8154 Jan, [facility] [id number] [address]- 2546 Jan, [facility] [id number] [address]- 7546 Nov, [facility] [id number] [address]- 4202 Nov, IMMUNIZATIONS Vaccine Route Administration Date Status FLUARIX QUAD (3 AND UP) 2017 IM Intramuscular Nov 09, 2016 Administered SOCIAL HISTORY Never Assessed REASON FOR VISIT Diabetes--nickuppettDIANE PLAN OF CARE Activity Details Follow Up 3 Months Reason:DMII VITAL SIGNS Height 68 in 2016-11-09 Weight 194.2 lbs 2016-11-09 Temperature 98.5 degrees Fahrenheit 2016-11-09 Heart Rate 76 bpm 2016-11-09 Respiratory Rate 20 2016-11-09 BMI 29.52 kg/m2 2016-11-09 Blood pressure systolic 120 mmHg 2016-11-09 Blood pressure diastolic 74 mmHg 2016-11-09 MEDICATIONS Medication Instructions Dosage Frequency Start Date End Date Duration Status Test strips Test Strips Contour 2 times a day test 2 times per day 12h 25 May, 2015 Active Metformin HCl 1000 MG Orally Twice a day 1 tablet with meals 12h Active Aspirin Adult Low Dose 81 MG Orally Once a day 1 tablet 24h Active Lisinopril 20 MG Orally Once a day 1 tablet 24h 90 days Active NovoLog Flexpen 100 UNIT/ML Subcutaneous 2 times a day Inject 60 units with meals 12h Active Levemir FlexTouch 100 UNIT/ML INJECT 80 UNITS SUBCUTANEOUSLY ONCE DAILY AT BEDTIME Active Toprol XL 25 MG Orally Once a day 1 tablet 24h 90 days Active Atorvastatin Calcium 80 MG Orally Once a day 0.5 tablet 24h 90 days Active RESULTS Name Result Date Reference Range A1C (IN HOUSE) 2016-11-09 A1C IN HOUSE 6.2 4.3 - 5.6 % Previous A1c 6.3 Lot [id number] Exp date 08/2018 PROCEDURES Procedure Date Ordered Result Body Site GLYCATED HEMOGLOBIN TEST Nov 09, 2016 FLUARIX QUAD (3 & UP)--2014Nov 09, 2016 [facility]LY [facility] VISIT ESTABLISHED PATIENT Nov 09, 2016 SINGLE IMMUNIZATION ADMIN Nov 09, 2016 INSTRUCTIONS MEDICATIONS ADMINISTERED No Known Medications MEDICAL (GENERAL) HISTORY Type Description Date Medical History type II diabetes Medical History hypertension Medical History Disorders of magnesium metabolism Medical History History of CVA with residual deficit Medical History Hyperlipidemia Medical History Chronic systolic heart failure Hospitalization History [facility]- through science interpreter he had an eye infection - right 10/2013
--- OUTSIDE RECORDS SUMMARY | 2017-10-10 11:56 | XMS REPORT ---
Author Author RONNIE KULDIP [facility] Address [address] [place] [address] Care Team Providers Care Pottery Kiln Builder Name Role Phone RONNIEANNI CLEMENTSHANY Unavailable PROBLEMS Type Condition ICD9-CM Code XEB70-XO Code Onset Dates Condition Status SNOMED Code Problem Hypertension I10 Active 69824092 Problem Type 2 diabetes mellitus with hyperglycemia E11.65 Active 113381183 Problem Hyperlipidemia E78.5 Active 83436423 Problem Type 2 diabetes mellitus with other specified complication E11.69 Active 772955027284 Problem Type 2 diabetes mellitus 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 Active 891149107 Problem Other elevated white blood cell (WBC) count D72.828 Active 896798704 Problem History of CVA with residual deficit I69.30 Active 854067874 Problem Ischemic cardiomyopathy I25.5 Active 325615770 Problem Chronic systolic heart failure I50.22 Active 756390061 Problem Type 2 diabetes 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, 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 Active 72585537 Problem Type 2 diabetes mellitus with diabetic polyneuropathy E11.42 Active 862344107 Problem Cerebral atherosclerosis I67.2 Active 32781323 Problem 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 Active 064656865 Problem 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.4 Active 739560546 ALLERGIES No Information ENCOUNTERS Encounter Location Date Diagnosis [place] [id number] [address] 15 Jul, 2017 Medicare annual wellness visit, initial Z00.00 [place] [id number] [place] [address] 76258- 7141 Jul, [place] [id number], [place] [address] June, Type 2 diabetes mellitus with hyperglycemia E11.65 ; Other elevated white blood cell (WBC) count D72.828 ; Hypertension I10 and Hyperlipidemia E78.5 [facility] [id number] [place] [address] 61659- 6428 Mar, Type 2 diabetes mellitus with hyperglycemia E11.65 ; Hypertension I10 ; Other elevated white blood cell (WBC) count D72.828 ; Hyperlipidemia E78.5 and Colon cancer screening Z12.11 [facility] [id number] [place] [address] 45376- 6678 Feb, [facility] [id number] [place] [address] 86442- 4463 Jan, Hypertension I10 [facility] [address] [address]- [address] Jan, Hypertension I10 [facility] [id number] [place] [address] 94699- 2887 Nov, Type 2 diabetes mellitus with hyperglycemia E11.65 and Encounter for immunization Z23 [facility] [id number] [place] [address] [id number] Sep, Dental examination Z01.20 [facility] [id number] [place] [address] 87997- 4726 Aug, [facility] [id number] [place] [address] 83246- 2662 Jul, Dental examination Z01.20 [facility] [id number] [place] [address] 82325- 2990 Jul, [facility] [id number] [place] [address] 06178- 5988 Jul, Type 2 diabetes mellitus with hyperglycemia E11.65 [facility] [address] 9[address]63- 6947 June, [facility] [id number] [place] [address] 29399- 6355 June, Dental examination Z01.20 [facility] [id number] [place] [address] 69656- 1854 June, Type 2 diabetes mellitus with hyperglycemia E11.65 [place] [id number] [place] [address] 78312- 8126 June, Hypertension I10 [place] [id number] [place] [address] 65249- 7619 June, Dental examination Z01.20 [place] [id number] [place] [address] 93861- 8426 June, Type 2 diabetes mellitus with hyperglycemia E11.65 ; Colon cancer screening Z12.11 ; Need for Streptococcus pneumoniae vaccination Z23 ; Hypertension I10 ; Encounter for immunization Z23 and Hyperlipidemia E78.5 [place] [id number] [place] [address] 41548- 0128 May, Type 2 diabetes mellitus with hyperglycemia E11.65 [place] [id number] [place] [address] 27721- 4864 Apr, Type 2 diabetes mellitus 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 ; Type 2 diabetes mellitus with hyperglycemia E11.65 and Hypertension I10 [place] [id number] [place] [address] 91635- 3081 Feb, Type 2 diabetes mellitus with hyperglycemia E11.65 [place] [id number] [place] [address] 24123- 3535 14 Jan, 2016 [place] [id number] [place] [address] 03846- 3993 07 Jan, 2016 [place] [id number] [place] [address] 79981- 5978 14 Dec, 2015 Hypertension I10 ; Type 2 diabetes mellitus with hyperglycemia E11.65 ; Hyperlipemia E78.5 and Other elevated white blood cell ( WBC) count D72.828 [place] [id number] [place] [address] 49147- 7891 Dec, Hypertension I10 ; Hyperlipemia E78.5 ; Type 2 diabetes mellitus with hyperglycemia E11.65 ; Type 2 diabetes mellitus 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 ; Other elevated white blood cell (WBC) count D72.828 and History of CVA with residual deficit I69.30 [place] [id number] [place] [address] 37557- 3626 Dec, Cardiomyopathy I42.9 ; Hyperlipidemia E78.5 ; Type 2 diabetes mellitus with other specified complication E11.69 and Hypertension I10 [place] [id number] [place] [address] 72723- 2198 Nov, [place] [id number] [place] [address] 40252- 9471 Nov, Cardiomyopathy I42.9 ; Hyperlipidemia E78.5 ; Type 2 diabetes mellitus with other specified complication E11.69 and Hypertension I10 [place] [id number] [place] [address] 77407- 1698 Oct, Hyperlipemia E78.5 [place] [id number] [place] [address] 11928- 7092 Sep, Type 2 diabetes mellitus with hyperglycemia E11.65 [place] [id number] [place] [address] 92657- 7946 June, Type 2 diabetes mellitus with hyperglycemia E11.65 [place] [id number] [place] [address] 07253- 5494 June, Hypertension I10 and Type 2 diabetes mellitus with hyperglycemia E11.65 [place] [id number] [place] [address] 30221- 3570 June, [place] [id number] [place] [address] 22573- 9888 May, [place] [id number] [place] [address] 73998- 1723 May, Hypertension I10 and Type 2 diabetes mellitus with hyperglycemia E11.65 [place] [id number] [place] [address] 18679- 1535 May, Hypertension I10 ; Type 2 diabetes mellitus with hyperglycemia E11.65 ; Hyperlipidemia E78.5 and Cardiomyopathy I42.9 [place] [address] [address] 8660 Mar, [place] [id number] [place] [address] 23035- 9827 Feb, Type 2 diabetes mellitus with hyperglycemia E11.65 [place] [id number] [place] [address] 89277- 1762 Jan, [place] [id number] [place] [address] 35280- 3675 Nov, [place] [id number] [place] [address] 35714- 0874 Nov, Diabetes mellitus without mention of complication, type II or unspecified type, uncontrolled 250.02 and Hyperlipidemia associated with type 2 diabetes mellitus 250.80 [place] [id number] [place] [address] 16383- 8531 Nov, Hypertension I10 ; Type 2 diabetes mellitus with other specified complication E11.69 and Hyperlipemia E78.5 [place] [id number] [place] [address] 28078- 3602 Nov, [place] [id number] [place] [address] 50575- 0747 Nov, [place] [address] [place] [address] 51693- 8318 Oct, Diabetes mellitus without mention of complication, type II or unspecified type, uncontrolled 250.02 and Hyperlipidemia associated with type 2 diabetes mellitus 250.80 [place] [address] [place] [address] 67563- 1615 Oct, [place] [id number] [place] [address] [id number]- 2637 Aug, Diabetes mellitus without mention of complication, type II or unspecified type, uncontrolled 250.02 ; Other and unspecified hyperlipidemia 272.4 and Hypertension 401.9 [place] [id number] [place] [address]- 1103 Aug, 2014 [facility] [place] [facility] [address] [id number] [place] [address]- 8854 Jul, [facility] [place] [facility] [address] [id number] [place] [address]- 6379 14 May, 2014 [facility] [place] [facility] [address] [id number] [place] [address]- 9532 May, [facility] [place] [facility] [address] [id number] [place] [address]- 9224 Apr, [facility] [place] [facility] [address] [id number] [place] [address]- 3984 Apr, 2014 [facility] [place] [facility] [address] [facility] [id number] [place] [address]- 7552 Apr, [facility] [place] [facility] [address] [id number] [place] [address]- 7674 Apr, 2014 [facility] [place] [facility] [address] [id number] [place] [address]- 0420 Apr, [facility] [place] [facility] [address] [id number] [place] [address]- 8431 Apr, [facility] [place] [facility] [address] [facility] [id number] [place] [address]- 5077 Mar, 2014 [facility] [place] [facility] [address] [id number] [place] [address]- 1044 Mar, 2014 [facility] [place] [facility] [address] [id number] [place] [address]- 9630 Mar, 2014 [facility] [place] [facility] [address] [id number] [place] [address]- 5555 Mar, 2014 [facility] [place] [facility] [address] [id number] [place] [address]- 7502 Mar, 2014 [facility] [place] [facility] [address] [id number] [place] [address]- 6216 Feb, [facility] [place] [facility] [address] [id number] [place] [address]- 4115 Feb, [facility] [place] [facility] [address] [id number] [place] [address]- 2714 Feb, [facility] [place] [facility] [address] [id number] [place] [address]- 3109 Feb, [facility] [place] [facility] [address] [id number] [place] [address]- 9781 Feb, [facility] [place] [facility] [address] [id number] [place] [address]- 9472 Feb, [facility] [place] [facility] [address] [id number] [place] [address]- 0841 Feb, [facility] [place] [facility] [address] [id number] [place] [address]- 9898 Feb, [facility] [place] [facility] [address] [id number] [place] [address]- 1412 Jan, [facility] [place] [facility] [address] [id number] [place] [address]- 9928 Jan, [facility] [place] [facility] [address] [id number] [place] [address]- 2251 Jan, [facility] [place] [facility] [address] [id number] [place] [address]- 6111 Jan, [facility] [place] [facility] [address] [id number] [address]- 3986 Jan, [facility] [place] [facility] [address] [id number] [place] [address]- 9719 Jan, [facility] [place] [facility] [address] [id number] [place] [address]- 6789 Jan, [facility] [place] [facility] [address] [id number] [place] [address]- 2202 Jan, [facility] [place] [facility] [address] [facility] [id number] [place] [address]395 Nov, [facility] [address] [facility] [id number] [place] [address]- 3834 Nov, IMMUNIZATIONS No Known Immunizations SOCIAL HISTORY Never Assessed REASON FOR VISIT Refill Request PLAN OF CARE VITAL SIGNS MEDICATIONS Medication Instructions Dosage Frequency Start Date End Date Duration Status Toprol XL 25 MG Orally Once a day 1 tablet 24h 90 days Active RESULTS No Results PROCEDURES No Known procedures INSTRUCTIONS MEDICATIONS ADMINISTERED No Known Medications MEDICAL (GENERAL) HISTORY Type Description Date Medical History type II diabetes Medical History hypertension Medical History Disorders of magnesium metabolism Medical History History of CVA with residual deficit Medical History Hyperlipidemia Medical History Chronic systolic heart failure Hospitalization History [facility]- through trimmer machine he had an eye infection - right 10/2013
--- OUTSIDE RECORDS SUMMARY | 2017-10-10 11:56 | XMS REPORT ---
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 Active 534170086 Problem Type 2 diabetes mellitus with diabetic polyneuropathy E11.42 Active 043623046 Problem Cerebral atherosclerosis I67.2 Active 27542443 Problem Type 2 diabetes mellitus with other specified complication E11.69 Active 581198564488 Problem Type 2 diabetes mellitus 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 Active 114621271 Problem Chronic systolic heart failure I50.22 Active 636286626 Problem Other elevated white blood cell (WBC) count D72.828 Active 493798298 Problem Ischemic cardiomyopathy I25.5 Active 374470262 Problem Type 2 diabetes mellitus with hyperglycemia E11.65 Active 278813499 ALLERGIES No Known Allergies SOCIAL HISTORY Never Assessed PLAN OF CARE Activity Details Follow Up 4 Weeks Reason:DMII VITAL SIGNS Height 68 in 2016-06-06 Weight 186 lbs 2016-06-06 Temperature 98.9 degrees Fahrenheit 2016-06-06 Heart Rate 80 bpm 2016-06-06 Respiratory Rate 20 2016-06-06 BMI 28.28 kg/m2 2016-06-06 Blood pressure systolic 134 mmHg 2016-06-06 Blood pressure diastolic 98 mmHg 2016-06-06 MEDICATIONS Medication Instructions Dosage Frequency Start Date End Date Duration Status Levemir FlexTouch 100 UNIT/ML Subcutaneous Once a day Inject 80 Units 24h Active Toprol XL 25 MG Orally Once a day 1 tablet 24h 90 days Active Atorvastatin Calcium 80 MG Orally Once a day 1 tablet 24h 90 days Active Metformin HCl 1000 MG Orally Twice a day 1 tablet with meals 12h 90 days Active NovoLog Flexpen 100 UNIT/ML Subcutaneous 2 times a day Inject 60 units with meals 12h Active Aspirin Adult Low Dose 81 MG Orally Once a day 1 tablet 24h 10 Jun, 2016 90 days Active Lisinopril 20 MG Orally Once a day 1 tablet 24h 90 days Active RESULTS No Results PROCEDURES Procedure Date Ordered Result Body Site LAB NOT BILLED BY [facility] June 06, 2016 PPV23 (PNEUMOVAX) June 06, 2016 VENIPUNCT, ROUTINE* June 06, 2016 FOOT EXAM PERFORMED June 06, 2016 SINGLE IMMUNIZATION ADMIN June 06, 2016 ADMN PNEUMCOC VAC NO FEE DAY June 06, 2016 [facility] VISIT ESTABLISHED PATIENT June 06, 2016 IMMUNIZATIONS Vaccine Route Administration Date Status PPV23 (PNEUMOVAX) IM Intramuscular June 06, 2016 Administered MEDICAL (GENERAL) HISTORY Type Description Date Medical History type II diabetes Medical History hypertension Medical History Disorders of magnesium metabolism Medical History History of CVA with residual deficit Medical History Hyperlipidemia Medical History Chronic systolic heart failure Hospitalization History [facility]- through custodial officer he had an eye infection - right 10/2013
--- OUTSIDE RECORDS SUMMARY | 2017-10-10 11:56 | XMS REPORT ---
Author Author KULDIP TRUJILLO [employer] Address Unknown Phone Unavailable Care Team Providers Care Branch Operations Manager Name Role Phone KULDIP TRUJILLO Unavailable Allergies No Known Allergies Problems Problem Type Condition Code Onset Dates Condition Status Problem Type 2 diabetes mellitus with diabetic polyneuropathy E11.42 Active Problem Hypertension I10 Active Problem Hyperlipemia E78.5 Active Problem Chronic systolic heart failure I50.22 Active Problem Other elevated white blood cell (WBC) count D72.828 Active Problem Type 2 diabetes mellitus 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 Active Problem Ischemic cardiomyopathy I25.5 Active Problem Hyperlipidemia E78.5 Active Problem History of CVA with residual deficit I69.30 Active Problem Type 2 diabetes mellitus with hyperglycemia E11.65 Active Medications Medication Code System Code Instructions Start Date End Date Status Dosage Test strips NDC 0 Test Strips Contour 2 times a day May 31, 2015 test 2 times per day Results No Known Results Summary Purpose [employer] Submission
--- OUTSIDE RECORDS SUMMARY | 2017-10-10 11:56 | XMS REPORT ---
Author KULDIP Donahue [employer] Address Unknown Phone Unavailable Care Team Providers Care Manganese Wheeler Name Role Phone KULDIP TRUJILLO CP Unavailable Allergies, Adverse Reactions, Alerts Substance Reaction Event Type N.K.D.A. Info Not Available Non Drug Allergy Problems Problem Type Condition Code Onset Dates Condition Status Problem Type 2 diabetes mellitus with diabetic polyneuropathy E11.42 Active Problem Hyperlipidemia E78.5 Active Problem Hypertension I10 Active Problem Type 2 diabetes mellitus 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 Active Problem Chronic systolic heart failure I50.22 Active Problem Type 2 diabetes mellitus with other specified complication E11.69 Active Problem Type 2 diabetes mellitus with hyperglycemia E11.65 Active Problem Ischemic cardiomyopathy I25.5 Active Problem Other elevated white blood cell (WBC) count D72.828 Active Problem History of CVA with residual deficit I69.30 Active Assessment Type 2 diabetes mellitus 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 Active Assessment Type 2 diabetes mellitus with hyperglycemia E11.65 Active Assessment History of CVA with residual deficit I69.30 Active Assessment Hyperlipemia E78.5 Active Assessment Other elevated white blood cell (WBC) count D72.828 Active Assessment Hypertension I10 Active Medications Medication Code System Code Instructions Start Date End Date Status Dosage Levemir FlexTouch [facility] 49189809033 100 UNIT/ML INJECT 80 UNITS SUBCUTANEOUSLY AT BEDTIME Metformin HCl [facility] 80312726117 1000 MG TAKE ONE TABLET BY MOUTH TWICE DAILY WITH MORNING AND EVENING MEALS Aspirin Adult Low Dose [facility] [address]-09 81 MG Orally Once a day June 1 tablet Toprol XL ND 52247660272 25 MG Orally Once a day 1 tablet Atorvastatin Calcium ND 16994979837 80 MG Orally Once a day 1 tablet Lisinopril [facility] 00580505052 20 MG Orally Once a day 1 tablet Procedures Procedure Coding System Code Date MICROALBUMIN, SEMIQUANT CPT-4 29015 Dec 17, 2015 Office Visit, Est Pt., Level 3 CPT-4 06548 Dec 17, 2015 GLYCATED HEMOGLOBIN TEST CPT-4 67838 Dec 17, 2015 MICROALBUMIN, QUANTITATIVE CPT-4 94406 Dec 17, 2015 ASSAY OF URINE CREATININE CPT-4 78002 Dec 17, 2015 Vital Signs Date/Time: Dec 17, 2015 Cardiac Monitoring Heart Rate 77 bpm Weight 200.6 lbs Height 68 in BMI 30.50 Index Blood Pressure Diastolic 77 mmHg Blood Pressure Systolic 144 mmHg Results Name Result Date Reference Range Unit Abnormality Flag A1C (IN HOUSE) ----Lot [id number] 20151217 ----Exp date 20151217 ----A1C IN HOUSE 7.2 20151217 4.3 - 5.6 % ----Previous A1c 7.8 20151217 MICROALBUMIN, URINE (IN HOUSE) ----Control + 20151217 ----A:C (IN HOUSE) 30-300 20151217 ----CRE 300mg/dL 20151217 ----ALB 150mg/dL 20151217 ----Color Dark Yellow 20151217 ----MICROALBUMIN Abnormal 20151217 ----Lot # [id number] 20151217 ----Exp date 20151217 ----Clarity Clear 20151217 MICROALBUMIN/CREATININE RATIO, URINE ----Microalbumin, Urine 118.6 20151217 Not Estab. ug/mL ----Microalb/Creat Ratio 46.3 20151217 0.0-30.0 mg/g creat H ----Creatinine, Urine 256.1 20151217 Not Estab. mg/dL Summary Purpose [employer] Submission
--- OUTSIDE RECORDS SUMMARY | 2017-10-10 11:57 | XMS REPORT ---
Author Author KULDIP TRUJILLO [facility] [employer] Address Unknown Phone Unavailable Care Team Providers Care Communications Intern Name Role Phone KULDIP TRUJILLO CP Unavailable [...] CVA with residual deficit I69.30 Active Assessment Other elevated white blood cell (WBC) count D72.828 Active Assessment Hyperlipemia E78.5 Active Assessment Type 2 diabetes mellitus with hyperglycemia E11.65 Active Assessment Hypertension I10 Active Medications No Known Medications Procedures Procedure Coding System Code Date LIPID PANEL CPT-4 87157 Dec 20, 2015 COMPLETE CBC W/AUTO DIFF WBC CPT-4 40894 Dec 20, 2015 COMPREHEN METABOLIC PANEL CPT-4 51432 Dec 20, 2015 VENIPUNCT, ROUTINE* CPT-4 54821 Dec 20, 2015 Results Name Result Date Reference Range Unit Abnormality Flag CMP ----Calcium, Serum 9.3 20151220 8.7-10.2 mg/dL ----Carbon Dioxide, Total 22 20151220 18-29 mmol/L ----ALT (SGPT) 26 20151220 0-44 IU/L ----Creatinine, Serum 0.83 20151220 0.76-1.27 mg/dL ----AST (SGOT) 18 20151220 0-40 IU/L ----eGFR If NonAfricn Am 102 30632794 >59 mL/min/1.73 ----Alkaline Phosphatase, S 95 06067246 39-117 IU/L ----eGFR If Africn Am 118 86746927 >59 mL/min/1.73 ----Bilirubin, Total 0.5 16979103 0.0-1.2 mg/dL ----BUN/Creatinine Ratio 11 24044277 9-20 ----A/G Ratio 1.8 42941163 1.1-2.5 ----Sodium, Serum 143 34710403 136-144 mmol/L ----Globulin, Total 2.5 16669517 1.5-4.5 g/dL ----Potassium, Serum 4.4 94370078 3.5-5.2 mmol/L ----Glucose, Serum 180 69089102 65-99 mg/dL H ----Chloride, Serum 104 99480030 97-106 mmol/L ----Albumin, Serum 4.5 68347736 3.5-5.5 g/dL ----BUN 9 61723407 6-24 mg/dL ----Protein, Total, Serum 7.0 44616334 6.0-8.5 g/dL CBC ----Neutrophils (Absolute) 4.6 86879531 1.4-7.0 x10E3/uL ----Basos 0 70242502 % ----Monocytes(Absolute) 0.5 60079552 0.1-0.9 x10E3/uL ----Lymphs (Absolute) 2.0 12504613 0.7-3.1 x10E3/uL ----Platelets 211 84168119 150-379 x10E3/uL ----Baso (Absolute) 0.0 29633727 0.0-0.2 x10E3/uL ----RDW 13.3 92418492 12.3-15.4 % ----Eos (Absolute) 0.1 85392233 0.0-0.4 x10E3/uL ----MCHC 33.0 56974900 31.5-35.7 g/dL ----MCH 28.5 28696293 26.6-33.0 pg ----MCV 86 96557919 79-97 fL ----Lymphs 28 25427002 % ----Neutrophils 64 17259953 % ----Eos 1 43095046 % ----Monocytes 7 24285322 % ----Immature Granulocytes 0 55086195 % ----Immature Grans (Abs) 0.0 66509513 0.0-0.1 x10E3/uL ----WBC 7.1 88033076 3.4-10.8 x10E3/uL ----RBC 5.16 51787581 4.14-5.80 x10E6/uL ----Hemoglobin 14.7 08086081 12.6-17.7 g/dL ----Hematocrit 44.5 77042929 37.5-51.0 % LIPID PANEL ----VLDL Cholesterol Carlos 13 44953771 5-40 mg/dL ----LDL Cholesterol Calc 28 79477953 0-99 mg/dL ----Triglycerides 65 05381022 0-149 mg/dL ----HDL Cholesterol 25 16930662 >39 mg/dL L ----Cholesterol, Total 66 31799537 100-199 mg/dL L Summary Purpose [employer] Submission
--- OUTSIDE RECORDS SUMMARY | 2017-10-10 11:57 | XMS REPORT ---
Author Author KULDIP TRUJILLO [facility] eClinicalWorks Address Unknown Phone Unavailable Care Team Providers Care Coordinate Measuring Machine Operator Name Role Phone KULDIP TRUJILLO CP Unavailable Allergies No Known Allergies Problems Problem Type Condition Code Onset Dates Condition Status Problem Hypertension I10 Active Problem Ischemic cardiomyopathy I25.5 Active Problem Hyperlipidemia E78.5 Active Problem Type 2 diabetes mellitus with diabetic polyneuropathy E11.42 Active Problem Hyperlipemia E78.5 Active Problem Type 2 diabetes mellitus with other specified complication E11.69 Active Problem Type 2 diabetes mellitus 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 Active Problem Cardiomyopathy I42.9 Active Problem History of CVA with residual deficit I69.30 Active Problem Type 2 diabetes mellitus with hyperglycemia E11.65 Active Problem Chronic systolic heart failure I50.22 Active Problem Other elevated white blood cell (WBC) count D72.828 Active Medications No Known Medications Results No Known Results Summary Purpose eClinicalWorks Submission
--- OUTSIDE RECORDS SUMMARY | 2017-10-10 11:57 | XMS REPORT ---
Author Author DELON REYES [facility] Address Unknown Care Team Providers Care College And Career Counselor Name Role Phone DELON REYES Unavailable PROBLEMS Type Condition ICD9-CM Code JIT00-ER Code Onset Dates Condition Status SNOMED Code Problem Hypertension I10 Active 30751444 Problem Type 2 diabetes mellitus with hyperglycemia E11.65 Active 019092837 Problem Hyperlipidemia E78.5 Active 03916540 Problem Type 2 diabetes mellitus with other specified complication E11.69 Active 225429360163 Problem Type 2 diabetes mellitus 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 Active 443874827 Problem Other elevated white blood cell (WBC) count D72.828 Active 046948119 Problem History of CVA with residual deficit I69.30 Active 983585441 Problem Ischemic cardiomyopathy I25.5 Active 479797066 Problem Chronic systolic heart failure I50.22 Active 346150154 Problem Type 2 diabetes 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, 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 Active 74092707 Problem Type 2 diabetes mellitus with diabetic polyneuropathy E11.42 Active 966917985 Problem Cerebral atherosclerosis I67.2 Active 93109615 Problem 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 Active 401884847 Problem custodial current use of insulin Z79.4 Active 774065526 ALLERGIES No Information ENCOUNTERS Encounter Location Date Diagnosis [place] [id number], [place] [address] June, Medicare annual wellness visit, initial Z00.00 [place] [id number] [place] [address] 79679- 4747 Mar, Type 2 diabetes mellitus with hyperglycemia E11.65 ; Hypertension I10 ; Other elevated white blood cell (WBC) count D72.828 ; Hyperlipidemia E78.5 and Colon cancer screening Z12.11 [place] [id number], [place] [address] Feb, [facility] [address] [address] Jan, Hypertension I10 [facility] [id number] [place] [address] 32874- 9741 Jan, Hypertension I10 [facility] [id number] [place] [address] 83442- 5377 Nov, Type 2 diabetes mellitus with hyperglycemia E11.65 and Encounter for immunization Z23 [facility] [address] [id number] [id number] Sep, Dental examination Z01.20 [facility] [id number] [place] [address] 76021- 8338 Aug, [facility] [id number] [place] [address] 73283- 4824 Jul, Dental examination Z01.20 [facility] [id number] [place] [address] 35980- 0556 Jul, [facility] [id number] [place] [address] 73780- 1089 Jul, Type 2 diabetes mellitus with hyperglycemia E11.65 [facility] [address], [place] [address] June, [facility] [address] [address] June, Dental examination Z01.20 [facility] [address], [place] [address] June, Type 2 diabetes mellitus with hyperglycemia E11.65 [facility] [id number] [place] [address] 40796- 2515 June, Hypertension I10 [facility] [address], [place] [address] June, Dental examination Z01.20 [facility] [id number] [place] [address] 15138- 8670 June, Type 2 diabetes mellitus with hyperglycemia E11.65 ; Colon cancer screening Z12.11 ; Need for Streptococcus pneumoniae vaccination Z23 ; Hypertension I10 ; Encounter for immunization Z23 and Hyperlipidemia E78.5 [place] [id number] [place] [address] 36887- 5491 May, Type 2 diabetes mellitus with hyperglycemia E11.65 [place] [id number] [place] [address] 37743- 5009 Apr, Type 2 diabetes mellitus 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 ; Type 2 diabetes mellitus with hyperglycemia E11.65 and Hypertension I10 [address] [address] Feb, Type 2 diabetes mellitus with hyperglycemia E11.65 [place] [id number] [place] [address] 88913- 5436 Jan, [place] [id number] [place] [address] 83516- 6824 Jan, [place] [id number] [place] [address] 32653- 3816 Dec, Hypertension I10 ; Type 2 diabetes mellitus with hyperglycemia E11.65 ; Hyperlipemia E78.5 and Other elevated white blood cell ( WBC) count D72.828 [place] [id number] [place] [address] 54313- 2235 Dec, Hypertension I10 ; Hyperlipemia E78.5 ; Type 2 diabetes mellitus with hyperglycemia E11.65 ; Type 2 diabetes mellitus 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 ; Other elevated white blood cell (WBC) count D72.828 and History of CVA with residual deficit I69.30 [place] [id number] [place] [address] 34901- 7463 09 Dec, 2015 Cardiomyopathy I42.9 ; Hyperlipidemia E78.5 ; Type 2 diabetes mellitus with other specified complication E11.69 and Hypertension I10 [place] [id number] [place] [address] 06925- 2241 Nov, [facility] [id number] [place] [address] 04720- 1407 Nov, Cardiomyopathy I42.9 ; Hyperlipidemia E78.5 ; Type 2 diabetes mellitus with other specified complication E11.69 and Hypertension I10 [facility] [id number] [place] [address] 22952- 2913 Oct, Hyperlipemia E78.5 [facility] [id number] [place] [address] 24467- 5424 Sep, Type 2 diabetes mellitus with hyperglycemia E11.65 [place] [facility] [id number] [place] [address] 11893- 6364 June, Type 2 diabetes mellitus with hyperglycemia E11.65 [place] [id number] [place] [address] 09347- 8858 June, Hypertension I10 and Type 2 diabetes mellitus with hyperglycemia E11.65 [facility] [id number] [place] [address] 19492- 2494 June, [place] [id number] [place] [address] 24467- 7700 May, [facility] [id number] [place] [address] 01318- 9692 May, Hypertension I10 and Type 2 diabetes mellitus with hyperglycemia E11.65 [place] [id number] [place] [address] 93802- 3393 May, Hypertension I10 ; Type 2 diabetes mellitus with hyperglycemia E11.65 ; Hyperlipidemia E78.5 and Cardiomyopathy I42.9 [place] [id number] [place] [address] 57769- 5507 Mar, [facility] [id number] [place] [address] 96880- 9301 Feb, Type 2 diabetes mellitus with hyperglycemia E11.65 [facility] [id number] [place] [address] 37856- 1436 Jan, [facility] [id number] [place] [address] 26377- 8586 Nov, [facility] [id number] [place] [address] 68803- 1617 Nov, Diabetes mellitus without mention of complication, type II or unspecified type, uncontrolled 250.02 and Hyperlipidemia associated with type 2 diabetes mellitus 250.80 [facility] [id number] [place] [address] 561731- 5854 Nov, Hypertension I10 ; Type 2 diabetes mellitus with other specified complication E11.69 and Hyperlipemia E78.5 [facility] [id number] [place] [address] 91653- 8477 Nov, [facility] [id number] [place] [address] 877888- 0716 Nov, [facility] [id number] [place] [address] 25367- 1630 Oct, Diabetes mellitus without mention of complication, type II or unspecified type, uncontrolled 250.02 and Hyperlipidemia associated with type 2 diabetes mellitus 250.80 [facility] [id number] [place] [address] 001523- 7748 Oct, [facility] [id number] [place] [address] 700889- 5649 Aug, Diabetes mellitus without mention of complication, type II or unspecified type, uncontrolled 250.02 ; Other and unspecified hyperlipidemia 272.4 and Hypertension 401.9 [facility] [address] [place] [address] 80126- 8045 Aug, [facility] [id number] [place] [address] 304857- 7153 Jul, [facility] [id number] [place] [address] [id number]- 3126 May, [facility] [id number] [place] [address] 95834- 3102 May, [facility] [place] [facility] [address] [id number] [place] [address]- 6546 Apr, [facility] [place] [facility] [address] [id number] [place] [address]- 1245 Apr, [facility] [place] [facility] [address] [id number] [place] [address]- 7422 Apr, [facility] [place] [facility] [address] [id number] [place] [address]- 9258 Apr, [facility] [place] [facility] [address] [id number] [place] [address]- 7187 Apr, [facility] [place] [facility] [address] [id number] [place] [address]- 4765 Apr, [facility] [place] [facility] [address] [id number] [place] [address]- 6252 Mar, [facility] [place] [facility] [address] [id number] [place] [address]- 1051 Mar, [facility] [place] [facility] [address] [id number] [place] [address]- 4978 Mar, [facility] [place] [facility] [address] [id number] [place] [address]- 6864 Mar, [facility] [place] [facility] [address] [id number] [place] [address]- 2828 Mar, [facility] [place] [facility] [address] [id number] [place] [address]- 4003 Feb, [facility] [place] [facility] [address] [id number] [place] [address]- 2549 Feb, [facility] [place] [facility] [address] [facility] [id number] [place] [address]- 8827 Feb, [facility] [place] [facility] [address] [id number] [place] [address]- 5702 Feb, [facility] [place] [facility] [address] [facility] [id number] [address] 2365 Feb, [facility] [address] [facility] [id number] [address]- 9401 Feb, [facility] [id number] [address]- 8334 Feb, [facility] [address], [place] [address]- 3229 Feb, [facility] [address] [facility] [id number], [place] [address]- 3467 Jan, [facility] [address] [address]- 8026 Jan, [facility] [address] [address]- 9916 Jan, [facility] [address] [address]- 5654 Jan, [facility] [address], [place] [address]- 4865 Jan, [facility] [address], [place] [address]- 0982 Jan, [facility] [address], [place] [address]- 0965 Jan, [facility] [id number] [address]- 0318 Jan, [facility] [id number] [address]- 8057 Nov, [facility] [id number] [address]- 6661 Nov, IMMUNIZATIONS No Known Immunizations SOCIAL HISTORY Never Assessed REASON FOR VISIT EMILE PLAN OF CARE Activity Details Follow Up prn Reason: VITAL SIGNS MEDICATIONS Medication Instructions Dosage Frequency Start Date End Date Duration Status Toprol XL 25 MG Orally Once a day 1 tablet 24h 90 days Active Metformin HCl 1000 MG Orally Twice a day 1 tablet with meals 12h 90 days Active NovoLog Flexpen 100 UNIT/ML Subcutaneous 2 times a day Inject 60 units with meals 12h 38 Active Lisinopril 20 MG Orally Once a day 1 tablet 24h 90 days Active Atorvastatin Calcium 80 MG Orally Once a day 0.5 tablet 24h 90 days Active Test strips Test Strips Contour 2 times a day test 2 times per day 12h 25 May, 2015 Active Levemir FlexTouch 100 UNIT/ML INJECT 80 UNITS SUBCUTANEOUSLY ONCE DAILY AT BEDTIME 37 Active RESULTS No Results PROCEDURES Procedure Date Ordered Result Body Site COMP ORAL EVALUATION - NEW/EST PT Sep 29, 2016 INSTRUCTIONS MEDICATIONS ADMINISTERED No Known Medications MEDICAL (GENERAL) HISTORY Type Description Date Medical History type II diabetes Medical History hypertension Medical History Disorders of magnesium metabolism Medical History History of CVA with residual deficit Medical History Hyperlipidemia Medical History Chronic systolic heart failure Hospitalization History [facility]- through community relations officer he had an eye infection - right 10/2013
--- OUTSIDE RECORDS SUMMARY | 2017-10-10 11:57 | XMS REPORT ---
Author Author KULDIP TRUJILLO [facility] Address [address] [place] [address] Care Team Providers Care Hydrographic Engineer Name Role Phone RONNIEANNIKULDIP Unavailable PROBLEMS Type Condition ICD9-CM Code [id number] Code Onset Dates Condition Status SNOMED Code Problem Hypertension I10 Active 63531850 Problem Type 2 diabetes mellitus with hyperglycemia E11.65 Active 008657221 Problem Hyperlipidemia E78.5 Active 44945104 Problem Type 2 diabetes mellitus with other specified complication E11.69 Active 293376476244 Problem Type 2 diabetes mellitus 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 Active 334397148 Problem Other elevated white blood cell (WBC) count D72.828 Active 869220445 Problem History of CVA with residual deficit I69.30 Active 646320246 Problem Ischemic cardiomyopathy I25.5 Active 450840009 Problem Chronic systolic heart failure I50.22 Active 831134443 Problem Type 2 diabetes 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, 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 Active 58633292 Problem Type 2 diabetes mellitus with diabetic polyneuropathy E11.42 Active 129080647 Problem Cerebral atherosclerosis I67.2 Active 67598813 Problem 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 Active 676989802 Problem oil heaterman current use of insulin Z79.4 Active 602638927 ALLERGIES No Information ENCOUNTERS Encounter Location Date Diagnosis [facility] [address] [facility] [id number] [address] Oct, [facility] [address] [facility] [id number], [place] [address] Sep, [facility] [address] [id number], [place] [address] Jul, Type 2 diabetes mellitus with hyperglycemia E11.65 ; Ischemic cardiomyopathy I25.5 ; Hypertension I10 ; Chronic systolic heart failure I50.22 ; Other elevated white blood cell (WBC) count D72.828 ; Hyperlipidemia E78.5 ; oil heaterman current use of insulin Z79.4 ; Type 2 diabetes 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, 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 ; Thickened nail L60.2 and Screening for colon cancer Z12.11 [facility] [id number] [place] [address]12- [address] June, Type 2 diabetes mellitus with hyperglycemia E11.65 ; Other elevated white blood cell (WBC) count D72.828 ; Hypertension I10 and Hyperlipidemia E78.5 [facility] [id number] [place] [address] 61645- 2975 Mar, Type 2 diabetes mellitus with hyperglycemia E11.65 ; Hypertension I10 ; Other elevated white blood cell (WBC) count D72.828 ; Hyperlipidemia E78.5 and Colon cancer screening Z12.11 [facility] [id number] [place] [address] 96573- 7674 Feb, [facility] [id number] [place] [address] 90145- 1063 Jan, Hypertension I10 [facility] [id number] [place] [address] 73440- 7703 Jan, Hypertension I10 [facility] [id number] [place] [address] 96709- 4467 Nov, Type 2 diabetes mellitus with hyperglycemia E11.65 and Encounter for immunization Z23 [facility] [address] [place] [id number] Sep, Dental examination Z01.20 [facility] [id number] [place] [address] 87672- 8319 Aug, [facility] [id number] [place] [address] 91683- 0107 Jul, Dental examination Z01.20 [facility] [id number] [place] [address] 34462- 2926 Jul, [facility] [address], [place] [address] Jul, Type 2 diabetes mellitus with hyperglycemia E11.65 [facility] [id number] [place] [address] 71503- 2160 June, [facility] [id number] [place] [address] 54324- 7187 June, Dental examination Z01.20 [facility] [id number] [place] [address] 82674- 8583 June, Type 2 diabetes mellitus with hyperglycemia E11.65 [facility] [id number] [place] [address] 49629- 1741 June, Hypertension I10 [id number] [place] [address] 92366- 4427 June, Dental examination Z01.20 [facility] [facility] [id number] [place] [address] 25549- 3488 June, Type 2 diabetes mellitus with hyperglycemia E11.65 ; Colon cancer screening Z12.11 ; Need for Streptococcus pneumoniae vaccination Z23 ; Hypertension I10 ; Encounter for immunization Z23 and Hyperlipidemia E78.5 [place] [id number] [place] [address] 90899- 7989 May, Type 2 diabetes mellitus with hyperglycemia E11.65 [place] [address] [place] [address] 42880- 4962 Apr, Type 2 diabetes mellitus 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 ; Type 2 diabetes mellitus with hyperglycemia E11.65 and Hypertension I10 [facility] [facility] [address] [place] [address] 36086- 3881 Feb, Type 2 diabetes mellitus with hyperglycemia E11.65 [place] [address] [place] [address] 29860- 6102 Jan, [facility] [id number] [place] [address] 71436- 0774 Jan, [place] [address] [address] Dec, Hypertension I10 ; Type 2 diabetes mellitus with hyperglycemia E11.65 ; Hyperlipemia E78.5 and Other elevated white blood cell ( WBC) count D72.828 [place] [id number] [place] [address] 42811- 5969 Dec, Hypertension I10 ; Hyperlipemia E78.5 ; Type 2 diabetes mellitus with hyperglycemia E11.65 ; Type 2 diabetes mellitus 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 ; Other elevated white blood cell (WBC) count D72.828 and History of CVA with residual deficit I69.30 [facility] [facility] [id number] [place] [address] 07645- 2640 Dec, Cardiomyopathy I42.9 ; Hyperlipidemia E78.5 ; Type 2 diabetes mellitus with other specified complication E11.69 and Hypertension I10 [place] [id number] [place] [address] 07534- 4114 Nov, [place] [id number] [place] [address] 09422- 4440 Nov, Cardiomyopathy I42.9 ; Hyperlipidemia E78.5 ; Type 2 diabetes mellitus with other specified complication E11.69 and Hypertension I10 [place] [address] [place] [address] 17023- 8635 Oct, Hyperlipemia E78.5 [place] [id number] [place] [address] 89733- 7206 Sep, Type 2 diabetes mellitus with hyperglycemia E11.65 [place] [address] [place] [address] 12331- 4938 June, Type 2 diabetes mellitus with hyperglycemia E11.65 [place] [address] [place] [address] 08146- 1666 June, Hypertension I10 and Type 2 diabetes mellitus with hyperglycemia E11.65 [facility] [facility] [id number] [place] [address] 85606- 2487 June, [facility] [address], [place] [address] May, [facility] [id number] [place] [address] 57511- 0858 May, Hypertension I10 and Type 2 diabetes mellitus with hyperglycemia E11.65 [facility] [id number] [place] [address] 83055- 2272 May, Hypertension I10 ; Type 2 diabetes mellitus with hyperglycemia E11.65 ; Hyperlipidemia E78.5 and Cardiomyopathy I42.9 [place] [id number] [place] [address] 26168- 2469 Mar, [place] [id number] [place] [address] 86981- 6961 Feb, Type 2 diabetes mellitus with hyperglycemia E11.65 [place] [id number] [place] [address] 71138- 1122 Jan, [facility] [address] [place] [address] 32989- 7318 Nov, [facility] [id number] [place] [address] 19253- 6591 Nov, Diabetes mellitus without mention of complication, type II or unspecified type, uncontrolled 250.02 and Hyperlipidemia associated with type 2 diabetes mellitus 250.80 [place] [address] [place] [address] 40104- 1595 Nov, Hypertension I10 ; Type 2 diabetes mellitus with other specified complication E11.69 and Hyperlipemia E78.5 [facility] [address], [place] [address]204 Nov, [facility] [id number] [place] [address] 50702- 0363 Nov, [facility] [address], [place] [address] 98[address] Oct, Diabetes mellitus without mention of complication, type II or unspecified type, uncontrolled 250.02 and Hyperlipidemia associated with type 2 diabetes mellitus 250.80 [facility] [address], [place] [address]- [address] Oct, [facility] [address] [address] Aug, Diabetes mellitus without mention of complication, type II or unspecified type, uncontrolled 250.02 ; Other and unspecified hyperlipidemia 272.4 and Hypertension 401.9 [facility] [address], [place] [address]- 8246 Aug, [facility] [address], [place] [address]- 4607 Jul, [facility] [address], [place] [address]- 6958 May, [facility] [address], [place] [address]- 3464 May, [facility] [address], [place] [address]- 8228 Apr, [facility] [address], [place] [address]- 0777 Apr, [facility] [address], [place] [address]- 1856 Apr, [facility] [address], [place] [address]- 3973 Apr, [facility] [address], [place] [address]- 3262 Apr, [facility] [id number], [place] [address]- 7989 Apr, [facility] [address] [address] Mar, [facility] [id number], [place] [address]- 7645 Mar, [facility] [place] [facility] [address] [id number] [place] [address]- 4139 Mar, 2014 [facility] [place] [facility] [address] [id number] [place] [address]- 6441 Mar, [facility] [place] [facility] [address] [id number] [place] [address]- 5041 Mar, [facility] [place] [facility] [address] [id number] [place] [address]- 5019 Feb, [facility] [place] [facility] [address] [id number] [place] [address]- 5089 Feb, [facility] [place] [facility] [address] [id number] [place] [address]- 0790 Feb, [facility] [place] [facility] [address] [id number] [place] [address]- 1461 Feb, [facility] [place] [facility] [address] [id number] [place] [address]- 1778 Feb, [facility] [place] [facility] [address] [id number] [place] [address]- 8465 Feb, [facility] [place] [facility] [address] [id number] [place] [address]- 4829 Feb, [facility] [place] [facility] [address] [id number] [place] [address]- 0619 Feb, [facility] [place] [facility] [address] [id number] [place] [address]- 3050 Jan, [facility] [place] [facility] [address] [id number] [place] [address]- 6589 Jan, [facility] [place] [facility] [address] [id number] [place] [address]- 3745 Jan, [facility] [place] [facility] [address] [id number] [place] [address] Jan, [facility] [place] [facility] [address] [id number], [place] [address]- 2546 Jan, [facility] [address] [facility] [id number], [place] [address]- 2546 Jan, [facility] [id number], [place] [address]- 2546 Jan, [facility] [address] [facility] [id number], [place] [address]- 2546 Jan, [facility] [address] [facility] [id number], [place] [address] 2546 Nov, [facility] [address] [facility] [id number], [place] [address] 2546 Nov, IMMUNIZATIONS No Known Immunizations SOCIAL HISTORY Never Assessed REASON FOR VISIT Eye Exam PLAN OF CARE VITAL SIGNS MEDICATIONS Unknown Medications RESULTS No Results PROCEDURES No Known procedures INSTRUCTIONS MEDICATIONS ADMINISTERED No Known Medications MEDICAL (GENERAL) HISTORY Type Description Date Medical History type II diabetes Medical History hypertension Medical History Disorders of magnesium metabolism Medical History History of CVA with residual deficit Medical History Hyperlipidemia Medical History Chronic systolic heart failure Hospitalization History [facility]- through keyboard specialist he had an eye infection - right 10/2013
--- OUTSIDE RECORDS SUMMARY | 2017-10-10 11:57 | XMS REPORT ---
Author KULDIP Donahue [employer] Address Unknown Phone Unavailable Care Team Providers Care Freelance Art Director Name Role Phone KULDIP TRUJILLO CP Unavailable Allergies, Adverse Reactions, Alerts Substance Reaction Event Type N.K.D.A. Info Not Available Non Drug Allergy Problems Problem Type Condition Code Onset Dates Condition Status Problem Type 2 diabetes mellitus with diabetic polyneuropathy E11.42 Active Problem Hypertension I10 Active Problem Hyperlipemia E78.5 Active Assessment Type 2 diabetes [...] Instructions Start Date End Date Status Dosage NovoLog Flexpen [facility] 48787238473 100 UNIT/ML INJECT 50 UNITS SUBCUTANEOUSLY THREE TIMES DAILY BEFORE MEALS Aspir-81 [facility] [address]-12 81 MG Orally Once a day 1 tablet Metformin HCl ND 66392194511 1000 MG TAKE ONE TABLET BY MOUTH TWICE DAILY WITH MORNING AND EVENING MEALS Atorvastatin Calcium ND 30596259611 80 MG Orally Once a day 1 tablet Toprol XL [facility] 96646835806 25 MG Orally Once a day 1 tablet Test strips ND 0 Test Strips Contour 2 times a day May 31, 2015 test 2 times per day Levemir FlexTouch [facility] 66889745166 100 UNIT/ML INJECT 80 UNITS SUBCUTANEOUSLY AT BEDTIME Aspirin EC Low Dose ND 96302349168 81 MG TAKE ONE TABLET BY MOUTH ONCE DAILY Lisinopril [facility] 79468112960 10 MG Orally Once a day 1 tablet Procedures Procedure Coding System Code Date MICROALBUMIN, SEMIQUANT CPT-4 16123 Sep 14, 2015 Office Visit, Est Pt., Level 3 CPT-4 64172 Sep 14, 2015 GLYCATED HEMOGLOBIN TEST CPT-4 33952 Sep 14, 2015 Vital Signs Date/Time: Sep 14, 2015 Cardiac Monitoring Heart Rate 72 bpm Weight 197.0 lbs Height 68 in BMI 29.95 Index Blood Pressure Diastolic 78 mmHg Blood Pressure Systolic 130 mmHg Results No Known Results Summary Purpose eClinicalWorks Submission
--- OUTSIDE RECORDS SUMMARY | 2017-10-10 11:58 | XMS REPORT ---
Author Author KULDIP TRUJILLO [facility] Address [address] [place] [address] Care Team Providers Care Lay Up Operator Name Role Phone KULDIP TRUJILLO Unavailable PROBLEMS Type Condition ICD9-CM Code [id number] Code Onset Dates Condition Status SNOMED Code Problem Hypertension I10 Active 41592103 Problem Type 2 diabetes mellitus with hyperglycemia E11.65 Active 594515261 Problem Hyperlipidemia E78.5 Active 25358652 Problem Type 2 diabetes mellitus with diabetic polyneuropathy E11.42 Active 765329439 Problem Type 2 diabetes mellitus with other specified complication E11.69 Active 461378636323 Problem Type 2 diabetes mellitus 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 Active 276366185 Problem Other elevated white blood cell (WBC) count D72.828 Active 677840391 Problem History of CVA with residual deficit I69.30 Active 749182917 Problem Ischemic cardiomyopathy I25.5 Active 661782661 Problem Chronic systolic heart failure I50.22 Active 880470190 ALLERGIES No Known Allergies SOCIAL HISTORY Never Assessed PLAN OF CARE Activity Details Follow Up 4 Weeks Reason: VITAL SIGNS Height 68 in 2016-04-07 Weight 204.4 lbs 2016-04-07 Temperature 98.2 degrees Fahrenheit 2016-04-07 Heart Rate 84 bpm 2016-04-07 Respiratory Rate 20 2016-04-07 BMI 31.08 kg/m2 2016-04-07 Blood pressure systolic 124 mmHg 2016-04-07 Blood pressure diastolic 82 mmHg 2016-04-07 MEDICATIONS Medication Instructions Dosage Frequency Start Date End Date Duration Status Toprol XL 25 MG Orally Once a day 1 tablet 24h 90 days Active Aspirin Adult Low Dose 81 MG Orally Once a day 1 tablet 24h June, 90 days Active Atorvastatin Calcium 80 MG Orally Once a day 1 tablet 24h 30 Active Metformin HCl 1000 MG TAKE ONE TABLET BY MOUTH TWICE DAILY WITH MORNING AND EVENING MEALS Active Lisinopril 20 MG Orally Once a day 1 tablet 24h 90 days Active Levemir FlexTouch 100 UNIT/ML Subcutaneous Twice a day Inject 40 Units 12h 30 days Active NovoLog Flexpen 100 UNIT/ML Subcutaneous 2 times a day Inject 40 units with meals 12h 30 days Active RESULTS Name Result Date Reference Range A1C (IN HOUSE) 2016-04-07 A1C IN HOUSE 8.7 4.3 - 5.6 % Previous A1c 7.2 Lot [id number] Exp date 12/2017 PROCEDURES Procedure Date Ordered Result Body Site GLYCATED HEMOGLOBIN TEST April 07, 2016 [facility] VISIT ESTABLISHED PATIENT April 07, 2016 IMMUNIZATIONS No Known Immunizations MEDICAL (GENERAL) HISTORY Type Description Date Medical History type II diabetes Medical History hypertension Medical History Disorders of magnesium metabolism Medical History History of CVA with residual deficit Medical History Hyperlipidemia Medical History Chronic systolic heart failure Hospitalization History [facility]- through interpreter for the deaf he had an eye infection - right 10/2013
--- OUTSIDE RECORDS SUMMARY | 2017-10-10 11:58 | XMS REPORT ---
Author Author KULDIP TRUJILLO [employer] Address Unknown Phone Unavailable Care Team Providers Care Moisture Meter Operator Name Role Phone KULDIP TRUJILLO CP Unavailable Allergies, Adverse Reactions, Alerts Substance Reaction Event Type N.K.D.A. Info Not Available Non Drug Allergy Problems Problem Type Condition Code Onset Dates Condition Status Problem Type 2 diabetes mellitus with diabetic polyneuropathy E11.42 Active Problem Hypertension I10 Active Problem Hyperlipemia E78.5 Active Assessment Type 2 diabetes mellitus with hyperglycemia E11.65 Active Assessment Hypertension I10 Active Problem Chronic systolic heart failure I50.22 Active Problem Other elevated white blood cell (WBC) count D72.828 Active Problem Type 2 diabetes mellitus 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 Active Problem Ischemic cardiomyopathy I25.5 Active Problem Hyperlipidemia E78.5 Active Problem History of CVA with residual deficit I69.30 Active Problem Type 2 diabetes mellitus with hyperglycemia E11.65 Active Medications No Known Medications Procedures Procedure Coding System Code Date FOOT EXAM PERFORMED CPT-4 2028F May 25, 2015 Office Visit, Est Pt., Level 3 CPT-4 35414 May 25, 2015 GLYCATED HEMOGLOBIN TEST CPT-4 22445 May 25, 2015 Vital Signs Date/Time: May 25, 2015 Temperature 98.0 F Weight 199.4 lbs Height 68 in BMI 30.32 Index Blood Pressure Diastolic 86 mmHg Blood Pressure Systolic 140 mmHg Cardiac Monitoring Heart Rate 88 bpm Results Name Result Date Reference Range Unit Abnormality Flag A1C (IN HOUSE) ----A1C IN HOUSE 9.3 [id number] 4.3 - 5.6 % ----Previous A1c 7.7 [id number] ----Lot [id number] ----Exp date [id number] FOOT EXAM PERFORMED Summary Purpose eClinicalWorks Submission
--- OUTSIDE RECORDS SUMMARY | 2017-10-10 11:58 | XMS REPORT ---
Author Author KULDIP TRUJILLO [facility] eClinicalWorks Address Unknown Phone Unavailable Care Team Providers Care Flying Instructor Name Role Phone KULDIP TURJILLO Unavailable Allergies No Known Allergies Problems Problem Type Condition ICD-9 Code Onset Dates Condition Status Problem Ischemic cardiomyopathy 414.8 Active Problem Unspecified systolic heart failure 428.20 Active Problem Hypertension 401.9 Active Problem Unspecified cerebral artery occlusion with cerebral infarction 434.91 Active Problem Diabetes mellitus without mention of complication, type II or unspecified type, uncontrolled 250.02 Active Problem Other and unspecified hyperlipidemia 272.4 Active Problem Leukocytosis, unspecified 288.60 Active Medications Medication Code System Code Instructions Start Date End Date Status Dosage Levemir [facility] [address]-10 100 UNIT/ML Subcutaneous Once a day 60 units Results No Known Results Summary Purpose eClinicalWorks Submission
--- OUTSIDE RECORDS SUMMARY | 2017-10-10 11:58 | XMS REPORT ---
Author Author KULDIP TRUJILLO Organization [facility] Address [address] [place] [address] Care Team Providers Care Electronics Assembler Name Role Phone KULDIP TRUJILLO Unavailable PROBLEMS Type Condition ICD9-CM Code [id number] Code Onset Dates Condition Status SNOMED Code Problem Hypertension I10 Active 94058378 Problem Type 2 diabetes mellitus with hyperglycemia E11.65 Active 051261181 Problem Hyperlipidemia E78.5 Active 32814991 Problem Type 2 diabetes mellitus with diabetic polyneuropathy E11.42 Active 661134257 Problem Type 2 diabetes mellitus with other specified complication E11.69 Active 216739160753 Problem Type 2 diabetes mellitus 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 Active 820512655 Problem Other elevated white blood cell (WBC) count D72.828 Active 459266699 Problem History of CVA with residual deficit I69.30 Active 933008778 Problem Ischemic cardiomyopathy I25.5 Active 245221106 Problem Chronic systolic heart failure I50.22 Active 470492952 ALLERGIES Unknown Allergies SOCIAL HISTORY No smoking Hx information available PLAN OF CARE VITAL SIGNS MEDICATIONS Medication Instructions Dosage Frequency Start Date End Date Duration Status NovoLog Flexpen 100 UNIT/ML Subcutaneous 3 times a day Inject 50 units with meals 8h Active RESULTS No Results PROCEDURES No Known procedures IMMUNIZATIONS No Known Immunizations
--- OUTSIDE RECORDS SUMMARY | 2017-10-10 11:58 | XMS REPORT ---
Author Author KULDIP TRUJILLO [employer] Address Unknown Phone Unavailable Care Team Providers Care Customer Service Sales Associate Name Role Phone KULDIP TRUJILLO CP Unavailable [...] Start Date End Date Status Dosage Levemir [facility] [address]-18 100 UNIT/ML Subcutaneous Once a day 80 units Results No Known Results Summary Purpose eClinicalWorks Submission
--- OUTSIDE RECORDS SUMMARY | 2017-10-10 11:58 | XMS REPORT ---
Author KULDIP Donahue eClinicalWorks Address Unknown Phone Unavailable Care Team Providers Care Solvent Recoverer Name Role Phone KULDIP TRUJILLO CP Unavailable Allergies, Adverse Reactions, Alerts Substance Reaction Event Type N.K.D.A. Info Not Available Non Drug Allergy Problems Problem Type Condition Code Onset Dates Condition Status Assessment Type 2 diabetes mellitus with hyperglycemia E11.65 Active Problem Other elevated white blood cell (WBC) count D72.828 Active Problem History of CVA with residual deficit I69.30 Active Problem Chronic systolic heart failure I50.22 Active Problem Hypertension I10 Active Problem Hyperlipemia E78.5 Active Problem Type 2 diabetes mellitus with hyperglycemia E11.65 Active Problem Ischemic cardiomyopathy I25.5 Active Medications Medication Code System Code Instructions Start Date End Date Status Dosage Metformin HCl [facility] 37433478318 1000 MG TAKE ONE TABLET BY MOUTH TWICE DAILY WITH MORNING AND EVENING MEALS Atorvastatin Calcium [facility] [address]-77 80 MG Orally Once a day 1 tablet Aspir-[address] [facility] [address]-40 81 MG Orally Once a day 1 tablet NovoLog [facility] [address]-61 100 UNIT/ML Subcutaneous TID AC 50 units Levemir [facility] [address]-42 100 UNIT/ML Subcutaneous Once a day 80 units Toprol XL [facility] [address]-71 25 MG Orally Once a day 1 tablet Lisinopril [facility] [address]-87 10 MG Orally Once a day 1 tablet Procedures Procedure Coding System Code Date MICROALBUMIN, SEMIQUANT CPT-4 46993 Feb 10, 2015 Office Visit, Est Pt., Level 3 CPT-4 97768 Feb 10, 2015 GLYCATED HEMOGLOBIN TEST CPT-4 11321 Feb 10, 2015 Vital Signs Date/Time: Feb 10, 2015 Temperature 97.0 F Weight 199.7 lbs Height 68 in BMI 30.36 Index Blood Pressure Diastolic 84 mmHg Blood Pressure Systolic 132 mmHg Cardiac Monitoring Heart Rate 84 bpm Results Name Result Date Reference Range Unit Abnormality Flag A1C (IN HOUSE) ----A1C IN HOUSE 7.7 20150210 4.30 - 5.6 % ----Previous A1c 8.7 20150210 ----Lot # [id number] ----Exp date 20150210 MICROALBUMIN, URINE (IN HOUSE) ----CRE 300 [id number] ----ALB 150 [id number] ----A:C (IN HOUSE) 30-300 20150210 ----Clarity clear 20150210 ----Color yellow 20150210 ----Lot # [id number] ----Exp date [id number] ----MICROALBUMIN abnormal 20150210 Summary Purpose eClinicalWorks Submission
[2017-10-10 11:59] LABS: BASOPHILS % (AUTO) 0 % (0-10); EOSINOPHILS # (AUTO) 0.2 10^3/uL (0.0-0.3); EOSINOPHILS % (AUTO) 2 % (0-10); HEMATOCRIT 48 % (40-54); HEMOGLOBIN 16.5 G/DL (13.3-17.7); LYMPHOCYTES # (AUTO) 4.3 X 10^3 (1.0-4.0); LYMPHOCYTES % (AUTO) 34 % (12-44); MEAN CORPUSCULAR HEMOGLOBIN 29 PG (25-34); MEAN CORPUSCULAR HGB CONC 34 G/DL (32-36); MEAN CORPUSCULAR VOLUME 85 FL (80-99); MEAN PLATELET VOLUME 10.5 FL (7.4-10.4); MONOCYTES # (AUTO) 1.1 X 10^3 (0.0-1.0); MONOCYTES % (AUTO) 9 % (0-12); NEUTROPHILS # (AUTO) 6.8 X 10^3 (1.8-7.8); NEUTROPHILS % (AUTO) 55 % (42-75); PLATELET COUNT 343 10^3/uL (130-400); RED BLOOD COUNT 5.66 10^6/uL (4.35-5.85); RED CELL DISTRIBUTION WIDTH 13.5 % (10.0-14.5); WHITE BLOOD COUNT 12.3 10^3/uL (4.3-11.0)
--- OUTSIDE RECORDS SUMMARY | 2017-10-10 11:59 | XMS REPORT | Continuity of Care Document ---
Author Author [facility] Address Unknown Phone Unavailable Allergies Active Description Code Type Severity Reaction Onset Reported/Identified Relationship to Patient Clinical Status Yes No Known Drug Allergies [id number] Drug Allergy Unknown N/A 10/16/2013 Medications There is no data. Problems Date Dx Coded Attending Type Code Diagnosis Diagnosed By 10/16/2013 BRIANDA PATEL Ot 250.00 DIAB CHICO WO COMPL, TYPE II OR UNSPEC TY 10/16/2013 BRIANDA PATEL Ot 368.8 VISUAL DISTURBANCES NEC 10/16/2013 BRIANDA PATEL Ot 379.92 SWELLING OR MASS OF EYE 10/16/2013 BRIANDA PATEL Ot 401.9 HYPERTENSION NOS 10/16/2013 BRIANDA PATEL Ot V12.54 PERSONAL HX OF TIA, CEREBRAL INFARCTION 10/16/2013 BRIANDA PATEL Ot V58.67 LONG-TERM (CURRENT) USE OF INSULIN 10/16/2013 BRIANDA PATEL Ot V58.69 OTH MED,LT,CURRENT USE 12/05/2013 KULDIP TRUJILLO MD N 250.02 DIABETES II UNCONTROLLED (UNCOMPLICATED) 12/05/2013 KULDIP TRUJILLO MD N 434.91 CEREBRAL ARTERY OCCLUSION UNSPECIFIED WITH CEREBRAL INFARCTION 12/05/2013 KULDIP TRUJILLO MD 250.02 DIABETES II UNCONTROLLED (UNCOMPLICATED) 12/05/2013 KULDIP TRUJILLO MD 434.91 CEREBRAL ARTERY OCCLUSION UNSPECIFIED WITH CEREBRAL INFARCTION 12/05/2013 KULDIP TRUJILLO MD 250.02 DIABETES II UNCONTROLLED (UNCOMPLICATED) 12/05/2013 KULDIP TRUJILLO MD 434.91 CEREBRAL ARTERY OCCLUSION UNSPECIFIED WITH CEREBRAL INFARCTION 12/05/2013 YAMILKA MURRAY MD 250.02 DIABETES II UNCONTROLLED (UNCOMPLICATED) 12/05/2013 YAMILKA MURRAY MD 434.91 CEREBRAL ARTERY OCCLUSION UNSPECIFIED WITH CEREBRAL INFARCTION 12/26/2013 OTHER, UNLISTED Ot 438.89 12/26/2013 OTHER, UNLISTED Ot V57.1 12/30/2013 OTHER, UNLISTED Ot 438.89 OTH LATE EFFECT-CEREBROVASCULAR DISEASE 12/30/2013 OTHER, UNLISTED Ot V57.1 PHYSICAL THERAPY NEC 01/09/2014 KULDIP TRUJILLO MD N 272.4 HYPERLIPIDEMIA 01/09/2014 KULDIP TRUJILLO MD N 276.8 HYPOPOTASSEMIA 01/09/2014 KULDIP TRUJILLO MD N 428.20 UNSPECIFIED SYSTOLIC HEART FAILURE 01/09/2014 KULDIP TRUJILLO MD N 272.4 HYPERLIPIDEMIA 01/09/2014 KULDIP TRUJILLO MD N 276.8 HYPOPOTASSEMIA 01/09/2014 KULDIP TRUJILLO MD N 428.20 UNSPECIFIED SYSTOLIC HEART FAILURE 01/09/2014 YAMILKA MURRAY MD 272.4 HYPERLIPIDEMIA 01/09/2014 TERRI MURGUIA ALI 276.8 HYPOPOTASSEMIA 01/09/2014 YAMILKA MURRAY MD 428.20 UNSPECIFIED SYSTOLIC HEART FAILURE 03/13/2014 KULDIP TRUJILLO MD N 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 03/13/2014 RONNIE MURGUIA KULDIP N 288.60 LEUKOCYTOSIS UNSPECIFIED 03/13/2014 KULDIP TRUJILLO MD N 593.9 UNSPECIFIED DISORDER OF KIDNEY AND URETER 03/13/2014 TERRI MURGUIA ALI 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 03/13/2014 TERRI MURGUIA ALI 288.60 LEUKOCYTOSIS UNSPECIFIED 03/13/2014 TERRI MURGUIA ALI 593.9 UNSPECIFIED DISORDER OF KIDNEY AND URETER 04/08/2014 TERRI MURGUIA ALI 250.90 DIABETES TYPE 2 W/ COMPLICATIONS (UNSPEC) 04/08/2014 YAMILKA MURRAY MD 425.4 CARDIOMYOPHATHY 04/08/2014 TERRI MURGUIA, ALI 794.31 ABNORMAL EKG 05/06/2014 TERRI MURGUIA ALI 414.00 CAD 05/06/2014 YAMILKA MURRAY MD 437.9 UNSPECIFIED CEREBROVASCULAR DISEASE 11/26/2015 Ot 250.02 DIAB CHICO WO COMPL, TYPE II OR UNSPEC TY 11/26/2015 Ot 401.9 HYPERTENSION NOS 11/26/2015 EPHRAIM MOTLEY OD Ot 368.2 DIPLOPIA 11/26/2015 EPHRAIM MOTLEY OD Ot 374.30 PTOSIS OF EYELID NOS 11/26/2015 Ot 272.4 HYPERLIPIDEMIA NEC/NOS 11/26/2015 Ot 425.4 PRIM CARDIOMYOPATHY NEC 11/26/2015 Ot 794.31 ABNORM ELECTROCARDIOGRAM 11/26/2015 Ot 272.4 HYPERLIPIDEMIA NEC/NOS 11/26/2015 Ot 425.4 PRIM CARDIOMYOPATHY NEC 11/26/2015 Ot 794.31 ABNORM ELECTROCARDIOGRAM Procedures Code Description [place] [address] ROUTINE VENIPUNCTURE 01/09/2014 21366 CMP 01/09/2014 35406 MAGNESIUM 01/09/2014 85234 CBC 01/09/2014 CARDIOLOG TERRI, ALI 01/09/2014 24889 A1C (IN-HOUSE) 01/09/2014 07991 EKG, TRACING (IN-HOUSE) 01/09/2014 87060 NUCLEAR STRESS TESTING 05/06/2014 40115 ECHO 2D 05/06/2014 12068 US CAROTID DOPPLER 05/06/2014 65516 OXIMETRY 05/06/2014 Results Test Result Range Microalb/Creat Ratio, Rand Ur - 12/17/15 13:52 Creatinine, Urine 256.1 mg/dL Not Estab. Microalbumin, Urine 118.6 ug/mL Not Estab. Microalb/Creat Ratio 46.3 mg/g creat 0.0-30.0 Comp. Metabolic Panel (14) - 06/06/16 11:31 Glucose, Serum 142 mg/dL 65-99 BUN 11 mg/dL 6-24 Creatinine, Serum 0.92 mg/dL 0.76-1.27 eGFR If NonAfricn Am 95 mL/min/1.73 >59 eGFR If Africn Am 110 mL/min/1.73 >59 BUN/Creatinine Ratio 12 9-20 Sodium, Serum 144 mmol/L 134-144 Potassium, Serum 4.6 mmol/L 3.5-5.2 Chloride, Serum 104 mmol/L 96-106 Carbon Dioxide, Total 22 mmol/L 18-29 Calcium, Serum 9.3 mg/dL 8.7-10.2 Protein, Total, Serum 7.0 g/dL 6.0-8.5 Albumin, Serum 4.5 g/dL 3.5-5.5 Globulin, Total 2.5 g/dL 1.5-4.5 A/G Ratio 1.8 1.2-2.2 Bilirubin, Total 0.4 mg/dL 0.0-1.2 Alkaline Phosphatase, S 99 IU/L 39-117 AST (SGOT) 19 IU/L 0-40 ALT (SGPT) 23 IU/L 0-44 Lipid Panel - 06/06/16 11:31 Cholesterol, Total 65 mg/dL 100-199 Triglycerides 68 mg/dL 0-149 HDL Cholesterol 29 mg/dL >39 VLDL Cholesterol Carlos 14 mg/dL 5-40 LDL Cholesterol Calc 22 mg/dL 0-99 CBC - 06/25/17 08:26 WHITE BLOOD CELL COUNT 8.6 Thousand/uL 3.8-10.8 RED BLOOD CELL COUNT 5.17 Million/uL 4.20-5.80 HEMOGLOBIN 14.7 g/dL 13.2-17.1 HEMATOCRIT 45.9 % 38.5-50.0 MCV 88.8 fL 80.0-100.0 MCH 28.4 pg 27.0-33.0 MCHC 32.0 g/dL 32.0-36.0 RDW 12.9 % 11.0-15.0 PLATELET COUNT 251 Thousand/uL 140-400 MPV 10.5 fL 7.5-12.5 ABSOLUTE NEUTROPHILS 5530 cells/uL 8579-7830 ABSOLUTE LYMPHOCYTES 2253 cells/uL 850-3900 ABSOLUTE MONOCYTES 507 cells/uL 200-950 ABSOLUTE EOSINOPHILS 267 cells/uL 15-500 ABSOLUTE BASOPHILS 43 cells/uL 0-200 NEUTROPHILS 64.3 % NRG LYMPHOCYTES 26.2 % NRG MONOCYTES 5.9 % NRG EOSINOPHILS 3.1 % NRG BASOPHILS 0.5 % NRG Encounters ACCT No. Visit Date/Time Discharge Status Pt. Type Provider Facility Loc./Unit Complaint [id number] 05/06/2014 08:49:00 05/06/2014 23:59:59 CLS Outpatient YAMILKA MURRAY MD [id number] 03/13/2014 10:29:00 03/13/2014 23:59:59 CLS Outpatient KULDIP TRUJILLO MD [id number] 01/09/2014 13:54:00 01/09/2014 23:59:59 CLS Outpatient KULDIP TRUJILLO MD [id number] 12/05/2013 10:48:00 12/05/2013 23:59:59 CLS Outpatient KULDIP TRUJILLO MD [id number] 06/07/2016 08:44:00 Document Registration [id number] 12/18/2015 13:05:00 Document Registration [id number] 11/26/2015 11:32:00 11/26/2015 23:59:59 CLS Outpatient RAISA ROBERTSON SCIENTIFIC [employer]EARCH MANAGER [facility] CARD CARDIOMYOPATHY [id number] 12/04/2013 13:24:00 12/30/2013 14:38:00 DIS Outpatient OTHER, UNLISTED [facility] REHAB CVA [id number] 10/16/2013 17:27:00 10/16/2013 23:59:59 CLS Outpatient EPHRAIM MOTLEY OD [facility] RAD VISION LOSS [id number] 10/16/2013 13:01:00 10/16/2013 15:10:00 DIS Emergency BRIANDA PATEL [facility] ER MULTIPLE COMPLAINTS [id number] 04/09/2014 07:30:00 Document Registration [id number] 04/08/2014 12:50:00 Document Registration [id number] 11/15/2010 11:40:00 Document Registration [id number] 06/25/2017 08:20:00 06/25/2017 23:59:59 CLS Outpatient KULDIP TRUJILLO MD [facility] [id number] 06/25/2017 08:20:00 Document Registration
--- OUTSIDE RECORDS SUMMARY | 2017-10-10 11:59 | XMS REPORT ---
Author Author TIGIST TOLBERT [facility] Address [address] [place] [address] Care Team Providers Care Ethnic Studies Professor Name Role Phone TIGIST TOLBERT Unavailable PROBLEMS Type Condition ICD9-CM Code [id number] Code Onset Dates Condition Status SNOMED Code Problem Hypertension I10 Active 43175126 Problem History of CVA with residual deficit I69.30 Active 964614836 Problem Hyperlipidemia E78.5 Active 88525174 Problem 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 Active 220745579 Problem Type 2 diabetes mellitus with diabetic polyneuropathy E11.42 Active 204835081 Problem Cerebral atherosclerosis I67.2 Active 70971762 Problem Type 2 diabetes mellitus with other specified complication E11.69 Active 042969091810 Problem Type 2 diabetes mellitus 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 Active 220646503 Problem Chronic systolic heart failure I50.22 Active 183042504 Problem Other elevated white blood cell (WBC) count D72.828 Active 394149396 Problem Ischemic cardiomyopathy I25.5 Active 563053046 Problem Type 2 diabetes mellitus with hyperglycemia E11.65 Active 179133537 ALLERGIES No Known Allergies SOCIAL HISTORY Never Assessed PLAN OF CARE Activity Details Follow Up 4 Weeks Reason:SRP VITAL SIGNS Blood pressure systolic 126 mmHg 2016-06-30 Blood pressure diastolic 73 mmHg 2016-06-30 MEDICATIONS Medication Instructions Dosage Frequency Start Date End Date Duration Status Levemir FlexTouch 100 UNIT/ML INJECT 80 UNITS SUBCUTANEOUSLY ONCE DAILY AT BEDTIME 37 Active NovoLog Flexpen 100 UNIT/ML Subcutaneous 2 times a day Inject 60 units with meals 12h 30 days Active Atorvastatin Calcium 80 MG Orally Once a day 0.5 tablet 24h 90 days Active Toprol XL 25 MG Orally Once a day 1 tablet 24h 90 days Active Test strips Test Strips Contour 2 times a day test 2 times per day 12h May, Active Magnesium Oxide 250 MG Orally Once a day 1 tablet 24h Active Lisinopril 20 MG Orally Once a day 1 tablet 24h 90 days Active Metformin HCl 1000 MG Orally Twice a day 1 tablet with meals 12h 90 days Active RESULTS No Results PROCEDURES Procedure Date Ordered Result Body Site INTRAORL-PERIAPICAL 1 FILM 29979 June 30, 2016 INTRAORL-PERIAPICAL EA ADD FILM June 30, 2016 Periodontal scaling and root June 30, 2016 Periodontal scaling and root June 30, 2016 INTRAORL-PERIAPICAL EA ADD FILM June 30, 2016 INTRAORL-PERIAPICAL EA ADD FILM June 30, 2016 PANORAMIC FILM SEE ALSO CODE 14078 June 30, 2016 BITEWINGS - FOUR FILMS June 30, 2016 IMMUNIZATIONS No Known Immunizations MEDICAL (GENERAL) HISTORY Type Description Date Medical History type II diabetes Medical History hypertension Medical History Disorders of magnesium metabolism Medical History History of CVA with residual deficit Medical History Hyperlipidemia Medical History Chronic systolic heart failure Hospitalization History [facility]- through educational interpreter he had an eye infection - right 10/2013
--- OUTSIDE RECORDS SUMMARY | 2017-10-10 11:59 | XMS REPORT ---
Author Author RAISA ROBERTSON [facility] eClinicalWorks Address Unknown Phone Unavailable Care Team Providers Care Administration Vice President Name Role Phone RAISA ROBERTSON Unavailable Allergies, Adverse Reactions, Alerts Substance Reaction [...] blood cell (WBC) count D72.828 Active Assessment Hyperlipidemia E78.5 Active Assessment Cardiomyopathy I42.9 Active Assessment Hypertension I10 Active Problem Type 2 diabetes mellitus with diabetic polyneuropathy E11.42 Active Assessment Type 2 diabetes mellitus with other specified complication E11.69 Active Problem Hyperlipemia E78.5 Active Medications Medication Code System Code Instructions Start Date End Date Status Dosage Test strips ND 0 Test Strips Contour 2 times a day May 31, 2015 test 2 times per day Toprol XL [facility] 2] 44639758247 25 MG Orally Once a day 1 tablet Lisinopril [facility]NOTE 2] 31592731737 10 MG Orally Once a day 1 tablet Levemir FlexTouch ND 28564482461 100 UNIT/ML INJECT 80 UNITS SUBCUTANEOUSLY AT BEDTIME NovoLog Flexpen ND 93256804389 100 UNIT/ML INJECT 50 UNITS SUBCUTANEOUSLY THREE TIMES DAILY BEFORE MEALS Atorvastatin Calcium ND 50253974147 80 MG Orally Once a day 1 tablet Aspirin Adult Low Dose [facility]NOTE 2] [address]-96 81 MG Orally Once a day 1 tablet Metformin HCl ND 58942508241 1000 MG TAKE ONE TABLET BY MOUTH TWICE DAILY WITH MORNING AND EVENING MEALS Procedures Procedure Coding System Code Date Office Visit, Est Pt., Level 4 CPT-4 60299 Nov 17, 2015 MEASURE BLOOD OXYGEN LEVEL CPT-4 15869 Nov 17, 2015 Vital Signs Date/Time: Nov 17, 2015 Cardiac Monitoring Heart Rate 72 bpm Weight 197 lbs Height 68 in BMI 29.95 Index Oximetry 98 % Blood Pressure Diastolic 78 mmHg Blood Pressure Systolic 130 mmHg Results Name Result Date Reference Range Unit Abnormality Flag Echo 2D Summary Purpose eClinicalWorks Submission
--- OUTSIDE RECORDS SUMMARY | 2017-10-10 11:59 | XMS REPORT ---
Author Author KULDIP TRUJILLO Organization [facility] Address [address] [place] [address] Care Team Providers Care Fruit Farmworker Name Role Phone KULDIP TRUJILLO Unavailable PROBLEMS Type Condition ICD9-CM Code [id number] Code Onset Dates Condition Status SNOMED Code Problem Hypertension I10 Active 49977340 Problem Ischemic cardiomyopathy I25.5 Active 320670180 Problem Hyperlipidemia E78.5 Active 74873849 Problem Type 2 diabetes mellitus with diabetic polyneuropathy E11.42 Active 447007176 Problem Type 2 diabetes mellitus with other specified complication E11.69 Active 660058338485 Problem Type 2 diabetes mellitus 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 Active 708808086 Problem History of CVA with residual deficit I69.30 Active 431113660 Problem Type 2 diabetes mellitus with hyperglycemia E11.65 Active 525679277 Problem Chronic systolic heart failure I50.22 Active 759582190 Problem Other elevated white blood cell (WBC) count D72.828 Active 003472907 ALLERGIES Unknown Allergies SOCIAL HISTORY No smoking Hx information available PLAN OF CARE VITAL SIGNS MEDICATIONS Medication Instructions Dosage Frequency Start Date End Date Duration Status Levemir FlexTouch 100 UNIT/ML INJECT 80 UNITS SUBCUTANEOUSLY AT BEDTIME Active RESULTS No Results PROCEDURES No Known procedures IMMUNIZATIONS No Known Immunizations
[2017-10-10] MEDS ORDERED: DEXTROSE 50% 50 ML (IMS) SYR IV ONE (12:00)
[2017-10-10] MEDS ORDERED: NS IV 1000 ML 1,000 ML IV ONE (12:02)
--- NOTE | 2017-10-10 12:12 | ED Neurological Problem ---
General Chief Complaint: Neurological Problems Stated Complaint: FALL WHILE MOWING DIZZY-POSS HEAT EXHAUSTION Source: patient Exam Limitations: no limitations History of Present Illness Date Seen by Provider: Oct 10, 2017 Time Seen by Provider: 11:42 Initial Comments Patient arrives altered with report of falling off a mower when mowing today. I occurred within the last 30 minutes. He was well before that. Does have history of stroke 3 or 4 years ago. Is not typically out in the heat but has mode before. Today he passed out or fell off a mower and family brought him here for further evaluation. No reported injury with this fall but patient is not acting right. He worsened after check in and was unable to stand without significant assistance and was no longer talking. Family states this is not normal. Does have left I gaze deviated lateral but family states that is normal and what occurred from his last stroke. Patient is diabetic and did take his insulin and also eat this morning. Blood sugar this morning was 149 per the . No reported recent illness. Timing/Duration: 1/2 hour Severity: severe Associated Symptoms: confusion, trouble walking, weakness Allergies and Home Medications Allergies Coded Allergies: No Known Drug Allergies (Unverified , 10/16/13) Home Medications Hum Insulin Nph/Reg Insulin Hm 10 Unit/0.1 Ml Soln, 20 UNIT SQ DAILY, (Reported) Patient Home Medication List Home Medication List Reviewed: Yes Review of Systems Review of Systems Constitutional: see HPI, diaphoresis, weakness Eyes: See HPI Unable to complete review of systems due to altered mental status. Past Ydjzcwx-Bswuxo-Ludosj Hx Past Med/Social Hx: Reviewed Nursing Past Med/Soc Hx Patient Social History Alcohol Use: Denies Use Recreational Drug Use: No Smoking Status: Never a Smoker Recent Foreign Travel: No Contact w/Someone Who Travel: No Past Medical History Surgeries: No Respiratory: No Cardiac: Yes Hypertension Neurological: Yes Stroke Gastrointestinal: No Musculoskeletal: No Endocrine: Yes Diabetes, Insulin dep HEENT: Yes Family Medical History Reviewed Nursing Family Hx No Pertinent Family Hx Physical Exam Vital Signs Vital Signs - First Documented 10/10/17 11:42 Temp 96.5 Pulse 99 Resp 20 B/P (MAP) 100/71 (81) Pulse Ox 92 Capillary Refill : Height, Weight, BMI Height: 0'68.00" Weight: 180lbs. oz. 81.425129cr; BMI Method:Stated General Appearance: WD/WN, mild distress HEENT: other (left pupil dilated and left I gaze deviated lateral. Right pupil reactive) Neck: supple, normal inspection Respiratory: lungs clear, normal breath sounds Cardiovascular: no murmur, tachycardia Peripheral Pulses: 2+ Dorsalis Pedis (R), 2+ Left Dors-Pedis (L), 2+ Radial Pulses (R), 2+ Radial Pulses (L) Gastrointestinal: non tender, soft Back: normal inspection, no CVA tenderness, no vertebral tenderness Extremities: normal range of motion (normal range of motion of left shoulder), non-tender, normal inspection Neurologic/Psychiatric: motor weakness, disoriented x 3 Crainal Nerves: abnormal eye position; No facial asymmetry Coordination/Gait: abnormal gait Skin: cool, diaphoresis, ecchymosis (4 x 8 cm area of ecchymosis at the area of the left lateral aspect of the shoulder.), pallor Progress/Results/Core Measures Results/Orders Lab Results Laboratory Tests Test 10/10/17 11:45 10/10/17 11:50 10/10/17 12:16 10/10/17 14:25 Range/Units White Blood Count 12.3 H 4.3-11.0 10^3/uL Red Blood Count 5.66 4.35-5.85 10^6/uL Hemoglobin 16.5 13.3-17.7 G/DL Hematocrit 48 40-54 % Mean Corpuscular Volume 85 80-99 FL Mean Corpuscular Hemoglobin 29 25-34 PG Mean Corpuscular Hemoglobin Concent 34 32-36 G/DL Red Cell Distribution Width 13.5 10.0-14.5 % Platelet Count 343 130-400 10^3/uL Mean Platelet Volume 10.5 H 7.4-10.4 FL Neutrophils (%) (Auto) 55 42-75 % Lymphocytes (%) (Auto) 34 12-44 % Monocytes (%) (Auto) 9 0-12 % Eosinophils (%) (Auto) 2 0-10 % Basophils (%) (Auto) 0 0-10 % Neutrophils # (Auto) 6.8 1.8-7.8 X 10^3 Lymphocytes # (Auto) 4.3 H 1.0-4.0 X 10^3 Monocytes # (Auto) 1.1 H 0.0-1.0 X 10^3 Eosinophils # (Auto) 0.2 0.0-0.3 10^3/uL Basophils # (Auto) 0.0 0.0-0.1 10^3/uL Prothrombin Time 13.6 12.2-14.7 SEC INR Comment 1.0 0.8-1.4 Activated Partial Thromboplast Time 25 24-35 SEC D-Dimer 0.41 0.00-0.49 UG/ML Sodium Level 143 135-145 MMOL/L Potassium Level 4.2 3.6-5.0 MMOL/L Chloride Level 109 H 98-107 MMOL/L Carbon Dioxide Level 17 L 21-32 MMOL/L Anion Gap 17 H 5-14 MMOL/L Blood Urea Nitrogen 15 7-18 MG/DL Creatinine 1.55 H 0.60-1.30 MG/DL Estimat Glomerular Filtration Rate 47 BUN/Creatinine Ratio 10 Glucose Level 53 *L 70-105 MG/DL Calcium Level 10.6 H 8.5-10.1 MG/DL Corrected Calcium 8.5-10.1 MG/DL Total Bilirubin 0.5 0.1-1.0 MG/DL Aspartate Amino Transf (AST/SGOT) 28 5-34 U/L Alanine Aminotransferase (ALT/SGPT) 28 0-55 U/L Alkaline Phosphatase 89 40-136 U/L Troponin I < 0.30 <0.30 NG/ML Total Protein 8.3 H 6.4-8.2 GM/DL Albumin 5.0 H 3.2-4.5 GM/DL Glucometer 55 *L 139 H 70-110 MG/DL Urine Color YELLOW Urine Clarity CLEAR Urine pH 5 5-9 Urine Specific R[place]y 1.020 1.016-1.022 Urine Protein 3+ H NEGATIVE Urine Glucose (UA) NEGATIVE NEGATIVE Urine Ketones 1+ H NEGATIVE Urine Nitrite NEGATIVE NEGATIVE Urine Bilirubin NEGATIVE NEGATIVE Urine Urobilinogen NORMAL NORMAL MG/DL Urine Leukocyte Esterase 1+ H NEGATIVE Urine RBC (Auto) 1+ H NEGATIVE Urine RBC RARE /HPF Urine WBC 5-10 H /HPF Urine Squamous Epithelial Cells 0-2 /HPF Urine Renal Epithelial Cells NONE /HPF Urine Crystals NONE /LPF Urine Bacteria MODERATE H /HPF Urine Casts PRESENT /LPF Urine Hyaline Casts >50 H /LPF Urine Granular Casts 0-2 H /LPF Urine White Blood Cell Casts RARE H /LPF Urine Mucus LARGE H /LPF Urine Culture Indicated YES My Orders Orders - ROCHELLE CARTER MD Cbc With Automated Diff (10/10/17 11:49) Protime With Inr (10/10/17 11:49) Partial Thromboplastin Time (10/10/17 11:49) Comprehensive Metabolic Panel (10/10/17 11:49) Fibrin Degradation Products (10/10/17 11:49) Troponin I (10/10/17 11:49) Ua Culture If Indicated (10/10/17 11:49) Chest 1 View, Ap/Pa Only (10/10/17 11:49) Ekg Tracing (10/10/17 11:49) Nothing By Mouth (10/10/17 Dinner) Accucheck Stat ONCE (10/10/17 11:49) Saline Lock/Iv-Start (10/10/17 11:49) Saline Lock/Iv-Start (10/10/17 11:49) Vital Signs Stroke Patient Q15M (10/10/17 11:49) Ct Head Wo-R/O Stroke (10/10/17 11:49) O2 (10/10/17 11:49) Intake & Output 06,14,22 (10/10/17 11:49) Monitor-Rhythm Ecg Trace Only (10/10/17 11:49) Dysphagia Screening Tool (10/10/17 11:49) Lipid Panel (10/11/17 06:00) D50w (Emergency) Syringe (Dextrose 50% 5 (10/10/17 12:00) D50w (Emergency) Syringe (Dextrose 50% 5 (10/10/17 11:48) Ns Iv 1000 Ml (Sodium Chloride 0.9%) (10/10/17 12:02) General/Regular (10/10/17 Lunch) Urine Culture (10/10/17 14:25) Medications Given in ED Current Medications Medications Dose Ordered Sig/Geovani Route Start Time Stop Time Status Last Admin Dose Admin Dextrose 50 ml ONCE ONCE IV 10/10/17 12:00 10/10/17 12:01 DC 10/10/17 11:51 50 ML Sodium Chloride 1,000 ml @ 0 mls/hr Q0M ONCE IV 10/10/17 12:02 10/10/17 12:05 DC 10/10/17 12:16 1,000 MLS/HR Vital Signs/I&O 9/5/18 11:42 Temp 96.5 Pulse 99 Resp 20 B/P (MAP) 100/71 (81) Pulse Ox 92 Progress Progress Note : Progress Note Seen and evaluated. Patient very weak and diaphoretic. Stroke activation at 1144. The fingerstick blood sugar 55. One amp of D50 initiated. CT head, EKG , chest x-ray, labs and UA ordered. Patient to CT scan. Monitor patient. Patient doing better after D50 administration. Continue to monitor. 1500: Patient remains stable with improved blood sugar. Diet was ordered and he is eating. He is eating well. He is able to stand without difficulty and has no sequela currently. The urine is pending. 1515: UA complete and does show urinary tract infection. We will treat this outpatient. Patient is overall back to normal per himself and the family. Discharged home with return precautions. Patient family verbalized understanding instructions and agreement with plan. Initial ECG Impression Date: Oct 10, 2017 Initial ECG Impression Time: 11:46 Initial ECG Rate: 101 Initial ECG Comparisson: No Previous ECG Available Comment Sinus tachycardia with normal axis. Q waves in the inferior leads. No evidence of ST elevation CT. Interpreted by me. Diagnostic Imaging Diagonstic Imaging: CT Plain Films/CT/US/NM/MRI: head Comments VIA [facility]. [place], [place] NAME: LINDA APODACA [facility] REC#: [id number] PT STATUS: REG ER : 1965 PHYSICIAN: ROCHELLE CARTER MD ADMIT DATE: 10/10/17/ER Draft Date of Exam:10/10/17 CT HEAD WO-R/O STROKE Indication: Syncope, hypoglycemia, unresponsive. Exam compared to 10/16/2013. Findings: There is no intracranial hemorrhage, edema, mass or mass effect. Incidental prominence of the cisterna magna chronic. Some intracranial atherosclerotic vascular calcifications and likely chronic periventricular white matter small vessel sequelae. No sulcal effacement. No findings suggestive of acute edema. No hemorrhage. Impression: No acute-appearing abnormality however there are some premature atherosclerotic vascular calcifications and likely periventricular white matter small vessel disease. Dictated on workstation # [id number] Dict: 10/10/17 1207 Trans: 10/10/17 1213 [facility] [id number] Interpreted by: EDEL LAMAR Electronically signed by: Departure Impression Primary Impression: Hypoglycemia due to type 2 diabetes mellitus Additional Impressions: Urinary tract infection Qualified Codes: N30.00 - Acute cystitis without hematuria Minor head injury Qualified Codes: S09.90XA - Unspecified injury of head, initial encounter Contusion of left shoulder Qualified Codes: S40.012A - Contusion of left shoulder, initial encounter Disposition: HOME, SELF-CARE Condition: Improved Departure-Patient Inst. Decision time for Depature: 15:23 Referrals: [facility] [place] (PCP/Family) Primary Care Physician Patient Instructions: Contusion (DC), HYPOGLYCEMIA, Minor Head Injury (DC), Urinary Tract Infections in Adults Add. Discharge Instructions: All discharge instructions reviewed with patient and/or family. Voiced understanding. Take medications as directed. Follow-up with your doctor within one week for recheck and further evaluation. Return for worsening, fever, vomiting, weakness , breathing problems or other concerns as needed. Drink plenty of fluids Scripts Cephalexin (Cephalexin) 500 Mg Tablet 500 MG PO BID, #14 TAB 0 Refills Prov: ROCHELLE CARTER MD 10/10/17 Copy Copies To 1: REYNALDO RASHEED TIMOTHY D MD Oct 10, 2017 12:12
[2017-10-10 12:14] LABS: FIBRIN DEGRADATION PRODUCTS 0.41 UG/ML (0.00-0.49); PROTHROMBIN TIME PATIENT 13.6 SEC (12.2-14.7)
[2017-10-10 12:18] LABS: ALANINE AMINOTRANSFERASE 28 U/L (0-55); ALKALINE PHOSPHATASE 89 U/L (40-136); BILIRUBIN,TOTAL 0.5 MG/DL (0.1-1.0); BUN/CREATININE RATIO 10; CALCIUM 10.6 MG/DL (8.5-10.1); CARBON DIOXIDE 17 MMOL/L (21-32); CHLORIDE 109 MMOL/L (98-107); CREATININE SERUM 1.55 MG/DL (0.60-1.30); GFR ESTIMATED 47; POTASSIUM 4.2 MMOL/L (3.6-5.0); SODIUM 143 MMOL/L (135-145); TOTAL PROTEIN 8.3 GM/DL (6.4-8.2)
[2017-10-10 12:28] LABS: GLUCOSE 53 MG/DL (70-105)
--- NOTE | 2017-10-10 13:21 | Diagnostic Imaging Report ---
INDICATION: Weakness and diaphoresis and syncope. Frontal chest obtained at 12:48 p.m. FINDINGS: Heart and mediastinal silhouette are normal in appearance. The lungs are clear. There is no pneumothorax or pleural fluid. IMPRESSION: Negative chest. Dictated by: Dictated on workstation # [id number]
[2017-10-10 14:38] LABS: BILIRUBIN,URINE NEGATIVE (NEGATIVE); CLARITY,URINE CLEAR; COLOR,URINE YELLOW; GLUCOSE, URINE (UA) NEGATIVE (NEGATIVE); KETONES,URINE 1+ (NEGATIVE); LEUKOCYTE ESTERASE ,URINE 1+ (NEGATIVE); NITRITE,URINE NEGATIVE (NEGATIVE); PH,URINE 5 (5-9); PROTEIN,URINE 3+ (NEGATIVE); UROBILINOGEN,URINE NORMAL (NORMAL)
[2017-10-10 15:00] LABS: BACTERIA,URINE MODERATE /HPF; RBC,URINE RARE /HPF; SQUAMOUS EPITHELIAL CELL,UR 0-2 /HPF
[2017-10-10 15:01] LABS: GRANULAR CASTS,URINE 0-2 /LPF; HYALINE CASTS, URINE >50 /LPF; WHITE BLOOD CELL CASTS, URINE RARE /LPF
[2017-10-10] MEDS ORDERED: CEPH500T PO (15:25)
[2017-10-10 15:34] VITALS: BP 156/98
== END 2017-10-10 15:43 | disposition home or self-care (01) ==
LOC: EDUNIT# 11:22 → ER 11:24
DX: S09.90XA Unspecified injury of head, initial encounter (principal); S40.012A Contusion of left shoulder, initial encounter; N39.0 Urinary tract infection, site not specified; E11.649 Type 2 diabetes mellitus with hypoglycemia without coma; I10 Essential (primary) hypertension; Z86.73 Personal history of transient ischemic attack (TIA), and cerebral infarction without residual deficits; Z79.4 Long term (current) use of insulin
CPT/HCPCS: 36415; 70450; 71045; 80053; 81000; 82962; 84484; 85025; 85379; 85610; 85730; 87077; 87088; 87186; 93005; 93041; 96374